=== PATIENT | male | born 1985 | race Caucasian/White ===

== ENCOUNTER 2017-02-05 22:02 | Emergency (ER) | payer OTHER ==
[~2017-02-05] VITALS: Ht 175.3 cm; Wt 80.0 kg
[2017-02-05 22:14] VITALS: BP 102/69
[2017-02-05] MEDS ORDERED: DOXYCYCLINE 100 MG CAPSULE PO ONE (22:30)
[2017-02-05] MEDS ORDERED: IBUPROFEN 800 MG TABLET PO ONE (22:30)
== END 2017-02-05 22:52 | disposition home or self-care (01) ==
LOC: EMS 22:03
DX: L03.116 Cellulitis of left lower limb (principal); F17.210 Nicotine dependence, cigarettes, uncomplicated; Z88.0 Allergy status to penicillin
CPT/HCPCS: 99283

== ENCOUNTER 2017-07-18 03:42 | Inpatient (IN) | payer OTHER ==
[~2017-07-18] VITALS: Ht 172.7 cm; Wt 58.8 kg
[2017-07-18] MEDS ORDERED: KETOROLAC TROMETHAMINE 60 MG/2 ML VIAL IM ONE (06:30)
[2017-07-18] MEDS ORDERED: SODIUM CHLORIDE 0.9% 1,000 ML IV ONE ×3 (06:45→15:15)
[2017-07-18 07:04] LABS: ANION GAP 9 mmol/L (8-16); CALCIUM, TOTAL 8.5 mg/dL (8.8-10.5); CARBON DIOXIDE 24 mmol/L (22-29); CHLORIDE 101 mmol/L (98-107); CREATININE 2.31 mg/dL (0.60-1.30); GLOMERULAR FILTR. RATE CALC 33 mL/min (>60); GLUCOSE,RANDOM 110 mg/dL (70-110); POTASSIUM 3.7 mmol/L (3.5-5.1); SODIUM SERUM 134 mmol/L (136-145); UREA NITROGEN, BLOOD 42 mg/dL (7-18)
[2017-07-18 07:08] LABS: BASOPHILS % (AUTO) 0.5 % (0.0-2.0); EOSINOPHILS % (AUTO) 0.7 % (1.0-6.0); HEMATOCRIT 38.3 % (41-53); HEMOGLOBIN 13.4 g/dL (13.5-17.5); INR 1.1 (0.9-1.1); LYMPHOCYTES # (AUTO) 4.6 K/uL (1.0-4.8); LYMPHOCYTES % (AUTO) 31.5 % (22.0-44.0); MEAN CORPUSCULAR VOLUME 86 fL (80-100); MONOCYTES % (AUTO) 13.7 % (2.0-9.0); NEUTROPHILS # (AUTO) 7.7 K/uL (1.8-7.7); NEUTROPHILS % (AUTO) 53.6 % (40.0-70.0); PROTHROMBIN TIME 11.5 SEC (9.4-11.6); RED BLOOD CELL COUNT(AUTO) 4.47 MIL/uL (4.50-5.90); RED CELL DISTRIBUTION WIDTH 17.5 % (11.5-14.5)
[2017-07-18] MEDS ORDERED: MORPHINE SULFATE 4 MG/ML SYRINGE IVP ONE (07:15)
[2017-07-18] MEDS ORDERED: ONDANSETRON HCL 4 MG/2 ML VIAL IVP ONE (07:15)
[2017-07-18 07:24] LABS: PH,URINE 6.5 (5.0-8.0); PROTEIN,URINE SEE CONFIRM (NEGATIVE)
[2017-07-18 07:25] LABS: BILIRUBIN,URINE PRELIM. POSITIVE (NEGATIVE); GLUCOSE, URINE (UA) 100 mg/dL (NEGATIVE); KETONES,URINE 15 mg/dL (NEGATIVE); LEUKOCYTE ESTERASE ,URINE LARGE (NEGATIVE); NITRATE,URINE NEGATIVE (NEGATIVE); OCCULT BLOOD,URINE LARGE (NEGATIVE)
[2017-07-18 07:27] LABS: APPEARANCE,URINE TURBID (CLEAR)
[2017-07-18 07:28] LABS: PLATELET COUNT (AUTO) 15 K/uL (150-450)
[2017-07-18 07:29] LABS: SULFOSALICYLIC ACID,URINE 4+ (Negative)
[2017-07-18 07:29] LABS: ALANINE AMINOTRANSFERASE 677 U/L (12-78); ALBUMIN 2.6 g/dL (3.4-5.0); ALKALINE PHOSPHATASE 186 U/L (46-116); ASPARTATE AMINOTRANSFERASE 649 U/L (15-37); BILIRUBIN,TOTAL 13.8 mg/dL (0.1-1.0); CREATINE KINASE MB 3.3 ng/mL (0-5); CREATINE KINASE, TOTAL 366 U/L (39-308); TOTAL PROTEIN, SERUM 6.1 g/dL (6.4-8.2)
[2017-07-18 07:30] LABS: BACTERIA,URINE Few /HPF (None Seen); RBC,URINE Full Field /HPF (0-2); SQUAMOUS EPITHELIAL CELL,UR Few /LPF (None Seen)
[2017-07-18 07:31] LABS: AMPHET/METH SCREEN,URINE POSITIVE (NEGATIVE); BARBITURATE SCREEN, URINE NEGATIVE (NEGATIVE); BENZODIAZEPINES SCREEN,URINE NEGATIVE (NEGATIVE); CANNABINOID SCREEN,URINE POSITIVE (NEGATIVE); COCAINE SCREEN,URINE NEGATIVE (NEGATIVE); METHADONE SCREEN, URINE NEGATIVE (NEGATIVE); OPIATE SCREEN,URINE NEGATIVE (NEGATIVE)
[2017-07-18 07:32] LABS: PHENCYCLIDINE SCREEN,URINE NEGATIVE (NEGATIVE)
[2017-07-18] MEDS ORDERED: CIPROFLOXACIN 400 MG/D5% WATER 200 ML IV ONE (10:15)
[2017-07-18] MEDS ORDERED: ACETAMINOPHEN 325 MG TABLET PO PRN ×2 (10:30→15:15)
[2017-07-18] MEDS ORDERED: 0.9% SODIUM CHLORIDE 10 ML SYRINGE IVP PRN (10:30)
[2017-07-18] MEDS ORDERED: ONDANSETRON HCL 4 MG/2 ML VIAL IVP PRN (10:30)
[2017-07-18 13:35] VITALS: BP 131/85
[2017-07-18] MEDS ORDERED: MAGNESIUM HYDROXIDE SUSPENSION 30 ML UDCUP PO PRN (15:15)
[2017-07-18] MEDS ORDERED: BISACODYL 10 MG RECTAL RECTAL SUPPOSITORY PR PRN (15:15)
[2017-07-18] MEDS ORDERED: HYDROCODONE/ACETAMINOPHEN 5-325 MG TABLET PO PRN (15:15)
[2017-07-18] MEDS ORDERED: CIPROFLOXACIN 200 MG/D5% WATER 100 ML IV SCH (15:30)
[2017-07-18 17:05] VITALS: BP 137/78
[2017-07-18 19:31] VITALS: BP 130/70
[2017-07-18] MEDS: DOCUSATE SODIUM 100 MG CAPSULE PO SCH (21:10)
[2017-07-18] MEDS: MORPHINE SULFATE 4 MG/ML SYRINGE IVP PRN (21:10)
[2017-07-18] MEDS: CIPROFLOXACIN 200 MG/D5% WATER 100 ML IV SCH (21:10)
[2017-07-18 23:48] VITALS: BP 133/85
[2017-07-19 04:08] VITALS: BP 147/72
[2017-07-19] MEDS: MORPHINE SULFATE 4 MG/ML SYRINGE IVP PRN ×2 (04:13→16:27)
[2017-07-19 05:57] LABS: INR 1.1 (0.9-1.1); PROTHROMBIN TIME 11.2 SEC (9.4-11.6)
[2017-07-19 06:06] LABS: BASOPHILS % (AUTO) 0.7 % (0.0-2.0); EOSINOPHILS % (AUTO) 0.9 % (1.0-6.0); HEMATOCRIT 32.6 % (41-53); HEMOGLOBIN 11.6 g/dL (13.5-17.5); LYMPHOCYTES % (AUTO) 38.8 % (22.0-44.0); MEAN CORPUSCULAR HEMOGLOBIN 29.7 pg (26.0-34.0); MEAN CORPUSCULAR HGB CONC 35.5 G/dL (31.0-37.0); MEAN CORPUSCULAR VOLUME 84 fL (80-100); MONOCYTES # (AUTO) 1.8 K/uL (0.1-1.0); MONOCYTES % (AUTO) 13.8 % (2.0-9.0); NEUTROPHILS # (AUTO) 5.9 K/uL (1.8-7.7); NEUTROPHILS % (AUTO) 45.8 % (40.0-70.0); RED BLOOD CELL COUNT(AUTO) 3.89 MIL/uL (4.50-5.90); RED CELL DISTRIBUTION WIDTH 18.8 % (11.5-14.5)
[2017-07-19 06:15] LABS: ALBUMIN 2.1 g/dL (3.4-5.0); BILIRUBIN,TOTAL 16.9 mg/dL (0.1-1.0); CREATININE 4.55 mg/dL (0.60-1.30); POTASSIUM 3.9 mmol/L (3.5-5.1); TOTAL PROTEIN, SERUM 5.3 g/dL (6.4-8.2)
[2017-07-19 06:17] LABS: BILIRUBIN,DIRECT 13.2 mg/dL (0.00-0.20); PLATELET COUNT (AUTO) 16 K/uL (150-450)
[2017-07-19 07:03] VITALS: BP 136/93
[2017-07-19] MEDS: CIPROFLOXACIN 200 MG/D5% WATER 100 ML IV SCH ×2 (07:55→20:33)
[2017-07-19] MEDS: PANTOPRAZOLE SODIUM 40 MG DR TABLET PO SCH (08:03)
[2017-07-19] MEDS: DOCUSATE SODIUM 100 MG CAPSULE PO SCH ×2 (08:03→20:32)
[2017-07-19 11:37] VITALS: BP 118/82
[2017-07-19] MEDS: SODIUM BICARBONATE 650 MG TABLET PO SCH ×2 (12:31→20:32)
[2017-07-19 15:34] VITALS: BP 124/78
[2017-07-19 20:02] VITALS: BP 131/84
[2017-07-19] MEDS ORDERED: SODIUM CHLORIDE 0.9% 250 ML IV ONE (20:36)
[2017-07-19 23:33] VITALS: BP 131/87
[2017-07-20 04:24] VITALS: BP 107/68
[2017-07-20] MEDS: MORPHINE SULFATE 4 MG/ML SYRINGE IVP PRN (05:39)
[2017-07-20 05:44] LABS: BASOPHILS % (AUTO) 0.6 % (0.0-2.0); EOSINOPHILS % (AUTO) 0.6 % (1.0-6.0); HEMATOCRIT 25.9 % (41-53); HEMOGLOBIN 9.5 g/dL (13.5-17.5); LYMPHOCYTES # (AUTO) 4.3 K/uL (1.0-4.8); LYMPHOCYTES % (AUTO) 32.9 % (22.0-44.0); MEAN CORPUSCULAR HEMOGLOBIN 29.9 pg (26.0-34.0); MEAN CORPUSCULAR HGB CONC 36.7 G/dL (31.0-37.0); MEAN CORPUSCULAR VOLUME 82 fL (80-100); MONOCYTES # (AUTO) 1.7 K/uL (0.1-1.0); MONOCYTES % (AUTO) 13.4 % (2.0-9.0); NEUTROPHILS # (AUTO) 6.8 K/uL (1.8-7.7); NEUTROPHILS % (AUTO) 52.5 % (40.0-70.0); RED BLOOD CELL COUNT(AUTO) 3.18 MIL/uL (4.50-5.90); RED CELL DISTRIBUTION WIDTH 21.9 % (11.5-14.5)
[2017-07-20 06:43] LABS: ALANINE AMINOTRANSFERASE 522 U/L (12-78); ALBUMIN 2.1 g/dL (3.4-5.0); ALKALINE PHOSPHATASE 160 U/L (46-116); ANION GAP 15 mmol/L (8-16); ASPARTATE AMINOTRANSFERASE 501 U/L (15-37); BILIRUBIN,TOTAL 15.8 mg/dL (0.1-1.0); CALCIUM, TOTAL 7.9 mg/dL (8.8-10.5); CARBON DIOXIDE 20 mmol/L (22-29); CHLORIDE 97 mmol/L (98-107); CREATINE KINASE MB 2.3 ng/mL (0-5); CREATINE KINASE, TOTAL 247 U/L (39-308); GLOMERULAR FILTR. RATE CALC 11 mL/min (>60); GLUCOSE,RANDOM 94 mg/dL (70-110); SODIUM SERUM 132 mmol/L (136-145); TOTAL PROTEIN, SERUM 5.5 g/dL (6.4-8.2)
[2017-07-20 06:45] LABS: PLATELET COUNT (AUTO) 19 K/uL (150-450); PROTHROMBIN TIME 10.6 SEC (9.4-11.6)
[2017-07-20 07:03] VITALS: BP 123/76
[2017-07-20 07:04] LABS: UREA NITROGEN, BLOOD 111 mg/dL (7-18)
[2017-07-20] MEDS: PANTOPRAZOLE SODIUM 40 MG DR TABLET PO SCH (08:08)
[2017-07-20] MEDS: SODIUM BICARBONATE 650 MG TABLET PO SCH ×2 (08:08→21:00)
[2017-07-20] MEDS: CIPROFLOXACIN 200 MG/D5% WATER 100 ML IV SCH ×2 (08:08→22:08)
[2017-07-20] MEDS: DOCUSATE SODIUM 100 MG CAPSULE PO SCH ×2 (08:09→20:33)
[2017-07-20] MEDS ORDERED: LORazepam 2 MG/ML VIAL ONE (09:32)
[2017-07-20] MEDS ORDERED: LIDOCAINE HCL/PF 1% 30 ML VIAL ONE ×2 (10:09→10:19)
[2017-07-20] MEDS: RIFAXIMIN 550 MG TABLET PO SCH ×2 (10:15→21:00)
[2017-07-20] MEDS ORDERED: LORazepam 2 MG/ML VIAL IM ONE (10:15)
[2017-07-20] MEDS ORDERED: SODIUM BICARBONATE 50 MEQ/50 ML VIAL ONE (10:19)
[2017-07-20 12:06] VITALS: BP 117/75
[2017-07-20] MEDS: LACTULOSE 200 GM/300 ML RECTAL SOLUTION PR SCH ×2 (12:42→21:00)
[2017-07-20 15:52] VITALS: BP 114/78
[2017-07-20 16:05] VITALS: BP 115/82
[2017-07-20] MEDS ORDERED: HEPARIN SODIUM,PORCINE 1,000 UNITS/ML 10 ML VIAL ONE (16:43)
[2017-07-20] MEDS: LORazepam 2 MG/ML VIAL IVP PRN ×2 (18:59→22:01)
[2017-07-20] MEDS ORDERED: SODIUM CITRATE 4% CATH FLUSH 5 ML SYRINGE IVP ONE ×2 (19:45)
[2017-07-20 20:00] VITALS: BP 97/69
[2017-07-20] MEDS ORDERED: SODIUM CHLORIDE 0.9% 250 ML IV ONE (21:35)
[2017-07-20 23:28] LABS: GLUCOMETER DEV NAME(LOC) 5N 2S; GLUCOSE,POINT OF CARE 174 MG/DL (70-110)
[2017-07-21] VITALS (10 sets, daily range): BP systolic 92–134; BP diastolic 60–188
[2017-07-21] MEDS: MORPHINE SULFATE 4 MG/ML SYRINGE IVP PRN (00:01)
[2017-07-21] MEDS: LORazepam 2 MG/ML VIAL IVP PRN (04:40)
[2017-07-21 05:10] LABS: INR 1.1 (0.9-1.1); PROTHROMBIN TIME 11.2 SEC (9.4-11.6)
[2017-07-21 05:59] LABS: ALBUMIN 2.3 g/dL (3.4-5.0); BILIRUBIN,TOTAL 10.1 mg/dL (0.1-1.0); CALCIUM, TOTAL 7.8 mg/dL (8.8-10.5); CREATININE 5.26 mg/dL (0.60-1.30); POTASSIUM 4.6 mmol/L (3.5-5.1); TOTAL PROTEIN, SERUM 5.9 g/dL (6.4-8.2)
[2017-07-21 06:13] LABS: BASOPHILS % (AUTO) 0.5 % (0.0-2.0); EOSINOPHILS % (AUTO) 0.2 % (1.0-6.0); HEMOGLOBIN 7.2 g/dL (13.5-17.5); LYMPHOCYTES # (AUTO) 4.7 K/uL (1.0-4.8); LYMPHOCYTES % (AUTO) 32.8 % (22.0-44.0); MEAN CORPUSCULAR VOLUME 79 fL (80-100); MONOCYTES # (AUTO) 1.6 K/uL (0.1-1.0); NEUTROPHILS % (AUTO) 55.5 % (40.0-70.0); PLATELET COUNT (AUTO) 20 K/uL (150-450); RED CELL DISTRIBUTION WIDTH 30.2 % (11.5-14.5)
[2017-07-21 07:00] LABS: MEAN CORPUSCULAR HGB CONC 36.9 G/dL (31.0-37.0)
[2017-07-21] MEDS ORDERED: SODIUM CHLORIDE 0.9% 250 ML IV ONE ×2 (07:49→14:40)
[2017-07-21] MEDS ORDERED: SODIUM CHLORIDE 0.9% 2,000 ML IV ONE (07:49)
[2017-07-21] MEDS: PANTOPRAZOLE SODIUM 40 MG DR TABLET PO SCH (09:00)
[2017-07-21] MEDS: SODIUM BICARBONATE 650 MG TABLET PO SCH ×2 (09:00→21:40)
[2017-07-21] MEDS: RIFAXIMIN 550 MG TABLET PO SCH ×2 (09:00→21:40)
[2017-07-21] MEDS: DOCUSATE SODIUM 100 MG CAPSULE PO SCH ×2 (09:00→21:00)
[2017-07-21] MEDS ORDERED: SODIUM CITRATE 4% CATH FLUSH 5 ML SYRINGE IVP ONE ×2 (11:30)
[2017-07-21] MEDS ORDERED: DiphenhydrAMINE HCL 50 MG/ML VIAL IVP ONE (15:30)
[2017-07-21 15:45] LABS: ABG A-A DIFF O2 57.8 mmHg (10-20.0); ABG BASE EXCESS 0.3 mmol/L (-2.0-3.0); ABG CARBOXYHEMOGLOBIN 3.7 % (0.0-1.5); ABG HCO3 25.3 mmol/L (22.0-26.0); ABG METHEMOGLOBIN 0.8 % (0.0-1.5); ABG OXYGEN CONTENT 11.5 mL/dL (15.0-23.0); ABG OXYHEMOGLOBIN 94.5 % (94.0-100.0); ABG PH 7.596 (7.350-7.450); ABG TOTAL HEMOGLOBIN 8.5 G/dL (12.0-18.0); PO2, ARTERIAL BG 114.6 mmHg (92.0-100.0); SOURCE, BLOOD GAS ARTERIAL; TEMPERATURE, FAHRENHEIT, BG 98.6 FAHREN (96.0-98.6)
[2017-07-21 15:46] LABS: ABG PCO2 23 mmHg (35-45); SITE, BLOOD GAS RT RADIAL
[2017-07-21 15:47] LABS: O2 DEVICE,BLOOD GAS CANNULA (ROOM AIR)
[2017-07-21] MEDS: ACETAMINOPHEN 650 MG RECTAL SUPPOSITORY PR PRN (16:23)
[2017-07-21] MEDS: LACTULOSE 200 GM/300 ML RECTAL SOLUTION PR SCH (21:00)
[2017-07-22] VITALS: BP 117/72
[2017-07-22] MEDS: ACETAMINOPHEN 650 MG RECTAL SUPPOSITORY PR PRN (00:35)
[2017-07-22] MEDS ORDERED: SODIUM CHLORIDE 0.9% 500 ML IV ONE (01:10)
[2017-07-22 04:00] VITALS: BP 118/73
[2017-07-22] MEDS: LORazepam 2 MG/ML VIAL IVP PRN ×2 (04:44→19:40)
[2017-07-22 06:19] LABS: HEMOGLOBIN 7.3 g/dL (13.5-17.5); MEAN CORPUSCULAR HEMOGLOBIN 29.9 pg (26.0-34.0); MEAN CORPUSCULAR HGB CONC 35.9 G/dL (31.0-37.0); MEAN CORPUSCULAR VOLUME 83 fL (80-100); RED BLOOD CELL COUNT(AUTO) 2.44 MIL/uL (4.50-5.90); RED CELL DISTRIBUTION WIDTH 24.2 % (11.5-14.5)
[2017-07-22 06:23] LABS: HEMATOCRIT 20.3 % (41-53)
[2017-07-22 06:24] LABS: PLATELET COUNT (AUTO) 15 K/uL (150-450)
[2017-07-22] MEDS ORDERED: VANCOMYCIN HCL 1.5 GM in DEXTROSE 5%-WATER 250 ML IV ONE (07:00)
[2017-07-22] MEDS ORDERED: VANCOMYCIN HCL 1 GM/D5% WATER 200 ML IV PRN (07:00)
[2017-07-22 08:00] VITALS: BP 111/65
[2017-07-22] MEDS ORDERED: *CLINICAL-LEVOFLOXACIN IVPB DOSING CLINICAL ONE (08:30)
[2017-07-22 08:48] LABS: CREATININE,URINE RANDOM 114.9 mg/dL (30.0-125.0)
[2017-07-22] MEDS ORDERED: LEVOFLOXACIN 750 MG/D5% WATER 150 ML IV ONE (09:00)
[2017-07-22] MEDS: DOCUSATE SODIUM 100 MG CAPSULE PO SCH ×2 (09:00→21:00)
[2017-07-22 09:08] LABS: CALCIUM, TOTAL 7.9 mg/dL (8.8-10.5); CREATININE 5.55 mg/dL (0.60-1.30); POTASSIUM 5.9 mmol/L (3.5-5.1)
[2017-07-22 09:14] LABS: ALBUMIN 2.7 g/dL (3.4-5.0); BILIRUBIN,TOTAL 9.1 mg/dL (0.1-1.0); TOTAL PROTEIN, SERUM 6.6 g/dL (6.4-8.2)
[2017-07-22] MEDS ORDERED: SODIUM POLYSTYRENE SULFONATE 15 GM/60 ML SUSPENSION BOTTLE NG ONE (09:15)
[2017-07-22] MEDS: RIFAXIMIN 550 MG TABLET PO SCH ×2 (09:25→21:55)
[2017-07-22] MEDS: LevETIRAcetam 500 MG in DEXTROSE 5%-WATER 100 ML IV SCH ×2 (09:25→21:56)
[2017-07-22] MEDS: PANTOPRAZOLE SODIUM 40 MG DR TABLET PO SCH (09:25)
[2017-07-22] MEDS: SODIUM BICARBONATE 650 MG TABLET PO SCH ×2 (09:25→21:55)
[2017-07-22] MEDS: LACTULOSE 200 GM/300 ML RECTAL SOLUTION PR SCH ×2 (09:26→21:55)
[2017-07-22] MEDS ORDERED: SODIUM CHLORIDE 0.9% 250 ML IV ONE (09:30)
[2017-07-22 09:45] LABS: BAND NEUTROPHILS % (MANUAL) 6 % (0-5); LYMPHOCYTES % (MANUAL) 34 % (22-44); METAMYELOCYTES % 2 % (0-0); MONOCYTES % (MANUAL) 10 % (2-9); MYELOCYTES % 4 % (0-0); SEGMENTED NEUTROPHILS % 44 % (40-70)
[2017-07-22] MEDS ORDERED: VANCOMYCIN HCL 500 MG in DEXTROSE 5%-WATER 100 ML IV ONE (11:15)
[2017-07-22] MEDS: ALBUMIN HUMAN 25%-25GM/100ML 100 ML IV SCH ×2 (11:35→22:55)
[2017-07-22] MEDS: VITAMIN B COMP/VIT C/FOLIC ACID CAPSULE PO SCH (11:35)
[2017-07-22 12:00] VITALS: BP 107/64
[2017-07-22 12:27] LABS: APPEARANCE,URINE CLOUDY (CLEAR); GLUCOSE, URINE (UA) NEGATIVE (NEGATIVE); KETONES,URINE NEGATIVE (NEGATIVE); LEUKOCYTE ESTERASE ,URINE NEGATIVE (NEGATIVE); NITRATE,URINE NEGATIVE (NEGATIVE); OCCULT BLOOD,URINE LARGE (NEGATIVE); PROTEIN,URINE SEE CONFIRM (NEGATIVE)
[2017-07-22 12:46] LABS: BILIRUBIN,URINE PRELIM. POSITIVE (NEGATIVE)
[2017-07-22 12:51] LABS: SULFOSALICYLIC ACID,URINE 3+ (Negative)
[2017-07-22 12:53] LABS: BACTERIA,URINE Few /HPF (None Seen); WBC,URINE 0-2 /HPF (0-5)
[2017-07-22 12:57] LABS: SQUAMOUS EPITHELIAL CELL,UR Rare /LPF (None Seen)
[2017-07-22 16:00] VITALS: BP 131/73
[2017-07-22] MEDS ORDERED: SODIUM CHLORIDE 0.9% 1,000 ML IV ONE (16:03)
[2017-07-22] MEDS ORDERED: SODIUM CITRATE 4% CATH FLUSH 5 ML SYRINGE IVP ONE (17:30)
[2017-07-22 20:00] VITALS: BP 111/62
[2017-07-22 20:04] LABS: C.DIFF GDH ANTIGEN, Stool Negative (Negative); C.DIFF TOXINS A&B, Stool Negative (Negative)
[2017-07-23] VITALS (17 sets, daily range): BP systolic 102–137; BP diastolic 58–78
[2017-07-23 05:27] LABS: BASOPHILS % (AUTO) 0.1 % (0.0-2.0); EOSINOPHILS % (AUTO) 0.2 % (1.0-6.0); LYMPHOCYTES # (AUTO) 5.8 K/uL (1.0-4.8); LYMPHOCYTES % (AUTO) 18.6 % (22.0-44.0); MEAN CORPUSCULAR HGB CONC 36.1 G/dL (31.0-37.0); MEAN CORPUSCULAR VOLUME 86 fL (80-100); MONOCYTES # (AUTO) 4.6 K/uL (0.1-1.0); MONOCYTES % (AUTO) 14.9 % (2.0-9.0); NEUTROPHILS # (AUTO) 20.4 K/uL (1.8-7.7); NEUTROPHILS % (AUTO) 66.2 % (40.0-70.0); RED CELL DISTRIBUTION WIDTH 25.5 % (11.5-14.5)
[2017-07-23 05:37] LABS: ALBUMIN 2.9 g/dL (3.4-5.0); BILIRUBIN,TOTAL 6.5 mg/dL (0.1-1.0); CREATININE 3.61 mg/dL (0.60-1.30); MAGNESIUM 2.2 mg/dL (1.80-2.40); PHOSPHORUS 8.7 mg/dL (2.5-4.9); POTASSIUM 4.1 mmol/L (3.5-5.1); TOTAL PROTEIN, SERUM 6.3 g/dL (6.4-8.2); VANCOMYCIN,RANDOM 20.6 mcg/mL (25.0-50.0)
[2017-07-23 06:38] LABS: HEMATOCRIT 15.5 % (41-53); HEMOGLOBIN 5.6 g/dL (13.5-17.5)
[2017-07-23 06:39] LABS: PLATELET COUNT (AUTO) 14 K/uL (150-450)
[2017-07-23] MEDS ORDERED: DiphenhydrAMINE HCL 50 MG/ML VIAL IVP ONE (08:15)
[2017-07-23] MEDS ORDERED: ACETAMINOPHEN 325 MG TABLET PO ONE (08:15)
[2017-07-23] MEDS ORDERED: SODIUM CHLORIDE 0.9% 250 ML IV ONE ×2 (08:16→15:43)
[2017-07-23] MEDS: LevETIRAcetam 500 MG in DEXTROSE 5%-WATER 100 ML IV SCH ×2 (08:18→20:48)
[2017-07-23] MEDS: DOCUSATE SODIUM 100 MG CAPSULE PO SCH ×2 (09:32→21:00)
[2017-07-23] MEDS: PANTOPRAZOLE SODIUM 40 MG/VIAL IVP SCH ×2 (09:32→20:51)
[2017-07-23] MEDS: VITAMIN B COMP/VIT C/FOLIC ACID CAPSULE PO SCH (09:32)
[2017-07-23] MEDS: SODIUM BICARBONATE 650 MG TABLET PO SCH ×2 (09:33→20:48)
[2017-07-23] MEDS: RIFAXIMIN 550 MG TABLET PO SCH ×2 (09:33→20:48)
[2017-07-23] MEDS: LACTULOSE 20 GM/30 ML SOLUTION UDCUP PO SCH ×2 (12:41→20:48)
[2017-07-23] MEDS: ALBUMIN HUMAN 25%-25GM/100ML 100 ML IV SCH ×2 (12:44→22:59)
[2017-07-23] MEDS: LORazepam 2 MG/ML VIAL IVP PRN (14:08)
[2017-07-24] VITALS (13 sets, daily range): BP systolic 108–139; BP diastolic 64–82
[2017-07-24] MEDS ORDERED: MetroNIDAZOLE 500 MG/NACL 100 ML IV SCH
[2017-07-24] MEDS: MetroNIDAZOLE 500 MG TABLET NG SCH ×3 (01:26→16:17)
[2017-07-24] MEDS: DOXYCYCLINE 100 MG CAPSULE NG SCH ×3 (02:02→20:40)
[2017-07-24] MEDS: LORazepam 2 MG/ML VIAL IVP PRN ×2 (02:16→13:51)
[2017-07-24 05:35] LABS: MEAN CORPUSCULAR HEMOGLOBIN 31.2 pg (26.0-34.0); MEAN CORPUSCULAR HGB CONC 35.7 G/dL (31.0-37.0); MEAN CORPUSCULAR VOLUME 87 fL (80-100); RED BLOOD CELL COUNT(AUTO) 2.04 MIL/uL (4.50-5.90); RED CELL DISTRIBUTION WIDTH 19.2 % (11.5-14.5)
[2017-07-24 06:55] LABS: HEMATOCRIT 17.8 % (41-53); HEMOGLOBIN 6.4 g/dL (13.5-17.5); PLATELET COUNT (AUTO) 7 K/uL (150-450)
[2017-07-24] MEDS: VITAMIN B COMP/VIT C/FOLIC ACID CAPSULE PO SCH (08:51)
[2017-07-24] MEDS: RIFAXIMIN 550 MG TABLET PO SCH ×2 (08:51→20:40)
[2017-07-24] MEDS: SODIUM BICARBONATE 650 MG TABLET PO SCH ×2 (08:51→20:41)
[2017-07-24] MEDS: LACTULOSE 20 GM/30 ML SOLUTION UDCUP PO SCH ×2 (08:52→20:40)
[2017-07-24] MEDS: PANTOPRAZOLE SODIUM 40 MG/VIAL IVP SCH ×2 (08:52→20:42)
[2017-07-24] MEDS: LEVOFLOXACIN 500 MG/D5% WATER 100 ML IV SCH (08:53)
[2017-07-24] MEDS: LevETIRAcetam 500 MG in DEXTROSE 5%-WATER 100 ML IV SCH ×2 (08:53→20:29)
[2017-07-24] MEDS: DOCUSATE SODIUM 100 MG CAPSULE PO SCH ×2 (08:54→20:41)
[2017-07-24 09:33] LABS: ALBUMIN 3.4 g/dL (3.4-5.0); BILIRUBIN,TOTAL 5.7 mg/dL (0.1-1.0); CALCIUM, TOTAL 7.9 mg/dL (8.8-10.5); CREATININE 4.55 mg/dL (0.60-1.30); POTASSIUM 3.9 mmol/L (3.5-5.1); TOTAL PROTEIN, SERUM 6.8 g/dL (6.4-8.2)
[2017-07-24 10:17] LABS: BAND NEUTROPHILS % (MANUAL) 8 % (0-5); CORRECTED WHITE BLOOD COUNT 23.3 K/uL (4.5-11.0); EOSINOPHILS % (MANUAL) 2 % (1-6); LYMPHOCYTES % (MANUAL) 13 % (22-44); METAMYELOCYTES % 2 % (0-0); MONOCYTES % (MANUAL) 15 % (2-9); MYELOCYTES % 2 % (0-0); SEGMENTED NEUTROPHILS % 58 % (40-70)
[2017-07-24] MEDS: ALBUMIN HUMAN 25%-25GM/100ML 100 ML IV SCH ×2 (11:55→23:15)
[2017-07-24] MEDS ORDERED: SODIUM CHLORIDE 0.9% 500 ML IV ONE (14:26)
[2017-07-24] MEDS: ACETAMINOPHEN 650 MG/20.3 ML SOLUTION UDCUP NG PRN (16:17)
[2017-07-24 20:10] LABS: OCCULT BLOOD STOOL SINGLE ONLY POSITIVE (NEGATIVE)
[2017-07-24 20:37] LABS: C.DIFF GDH ANTIGEN, Stool Negative (Negative); C.DIFF TOXINS A&B, Stool Negative (Negative)
[2017-07-25] VITALS (20 sets, daily range): BP systolic 118–141; BP diastolic 60–83
[2017-07-25] MEDS: LORazepam 2 MG/ML VIAL IVP PRN ×2 (00:10→21:53)
[2017-07-25] MEDS: MetroNIDAZOLE 500 MG TABLET NG SCH ×4 (00:45→23:35)
[2017-07-25 06:22] LABS: VANCOMYCIN,RANDOM 5.6 mcg/mL (25.0-50.0)
[2017-07-25 06:25] LABS: CALCIUM, TOTAL 8.7 mg/dL (8.8-10.5); CREATININE 4.35 mg/dL (0.60-1.30); MAGNESIUM 2.7 mg/dL (1.80-2.40); PHOSPHORUS 6.4 mg/dL (2.5-4.9); POTASSIUM 3.5 mmol/L (3.5-5.1)
[2017-07-25] MEDS: LevETIRAcetam 500 MG in DEXTROSE 5%-WATER 100 ML IV SCH ×2 (08:55→21:51)
[2017-07-25] MEDS: PANTOPRAZOLE SODIUM 40 MG/VIAL IVP SCH ×2 (08:55→21:51)
[2017-07-25] MEDS: DEXTROSE 5%-0.45% SODIUM CHL 1,000 ML IV SCH (08:55)
[2017-07-25] MEDS: VITAMIN B COMP/VIT C/FOLIC ACID CAPSULE PO SCH (08:56)
[2017-07-25] MEDS: SODIUM BICARBONATE 650 MG TABLET PO SCH ×2 (08:56→21:50)
[2017-07-25] MEDS: LACTULOSE 20 GM/30 ML SOLUTION UDCUP PO SCH (08:56)
[2017-07-25] MEDS: DOCUSATE SODIUM 100 MG CAPSULE PO SCH ×2 (08:56→21:00)
[2017-07-25] MEDS: RIFAXIMIN 550 MG TABLET PO SCH ×2 (08:56→21:50)
[2017-07-25] MEDS: DOXYCYCLINE 100 MG CAPSULE NG SCH ×2 (08:57→21:50)
[2017-07-25] MEDS ORDERED: VANCOMYCIN HCL 1.5 GM in DEXTROSE 5%-WATER 250 ML IV ONE (09:00)
[2017-07-25 09:44] LABS: MEAN CORPUSCULAR HEMOGLOBIN 31.3 pg (26.0-34.0); MEAN CORPUSCULAR HGB CONC 34.7 G/dL (31.0-37.0); MEAN CORPUSCULAR VOLUME 90 fL (80-100); RED BLOOD CELL COUNT(AUTO) 2.05 MIL/uL (4.50-5.90); RED CELL DISTRIBUTION WIDTH 18.4 % (11.5-14.5)
[2017-07-25 09:50] LABS: HEMOGLOBIN 6.4 g/dL (13.5-17.5)
[2017-07-25 09:51] LABS: HEMATOCRIT 18.5 % (41-53)
[2017-07-25 09:52] LABS: PLATELET COUNT (AUTO) 12 K/uL (150-450)
[2017-07-25 11:06] LABS: BAND NEUTROPHILS % (MANUAL) 9 % (0-5); CORRECTED WHITE BLOOD COUNT 13.7 K/uL (4.5-11.0); EOSINOPHILS % (MANUAL) 1 % (1-6); LYMPHOCYTES % (MANUAL) 15 % (22-44); METAMYELOCYTES % 1 % (0-0); MONOCYTES % (MANUAL) 8 % (2-9); MYELOCYTES % 3 % (0-0); SEGMENTED NEUTROPHILS % 63 % (40-70)
[2017-07-25] MEDS: ALBUMIN HUMAN 25%-25GM/100ML 100 ML IV SCH ×2 (11:47→23:35)
[2017-07-25] MEDS ORDERED: SODIUM CHLORIDE 0.9% 250 ML IV ONE (13:25)
[2017-07-26] VITALS (8 sets, daily range): BP systolic 119–146; BP diastolic 61–87
[2017-07-26] MEDS: MORPHINE SULFATE 4 MG/ML SYRINGE IVP PRN (00:03)
[2017-07-26] MEDS: DEXTROSE 5%-0.45% SODIUM CHL 1,000 ML IV SCH (02:27)
[2017-07-26 05:33] LABS: ALBUMIN 3.8 g/dL (3.4-5.0); BILIRUBIN,TOTAL 4.6 mg/dL (0.1-1.0); CALCIUM, TOTAL 8.9 mg/dL (8.8-10.5); CREATININE 4.06 mg/dL (0.60-1.30); MAGNESIUM 2.5 mg/dL (1.80-2.40); PHOSPHORUS 5.4 mg/dL (2.5-4.9); POTASSIUM 3.3 mmol/L (3.5-5.1); TOTAL PROTEIN, SERUM 6.7 g/dL (6.4-8.2)
[2017-07-26] MEDS ORDERED: POTASSIUM CHLORIDE 10% 40 MEQ/30 ML LIQUID UDCUP NG ONE (07:00)
[2017-07-26 07:52] LABS: BASOPHILS % (AUTO) 0.5 % (0.0-2.0); EOSINOPHILS % (AUTO) 2.9 % (1.0-6.0); HEMATOCRIT 21.5 % (41-53); HEMOGLOBIN 7.5 g/dL (13.5-17.5); LYMPHOCYTES # (AUTO) 2.6 K/uL (1.0-4.8); MEAN CORPUSCULAR VOLUME 89 fL (80-100); MONOCYTES # (AUTO) 1.8 K/uL (0.1-1.0); MONOCYTES % (AUTO) 12.5 % (2.0-9.0); NEUTROPHILS # (AUTO) 9.5 K/uL (1.8-7.7); NEUTROPHILS % (AUTO) 66.1 % (40.0-70.0); RED BLOOD CELL COUNT(AUTO) 2.43 MIL/uL (4.50-5.90); RED CELL DISTRIBUTION WIDTH 20.8 % (11.5-14.5)
[2017-07-26 08:03] LABS: PLATELET COUNT (AUTO) 11 K/uL (150-450)
[2017-07-26] MEDS: LEVOFLOXACIN 500 MG/D5% WATER 100 ML IV SCH (10:07)
[2017-07-26] MEDS: LevETIRAcetam 500 MG in DEXTROSE 5%-WATER 100 ML IV SCH ×2 (10:07→21:03)
[2017-07-26] MEDS: MetroNIDAZOLE 500 MG TABLET NG SCH ×2 (10:16→17:39)
[2017-07-26] MEDS: PANTOPRAZOLE SODIUM 40 MG/VIAL IVP SCH ×2 (10:16→21:05)
[2017-07-26] MEDS: DOXYCYCLINE 100 MG CAPSULE NG SCH ×2 (10:17→21:09)
[2017-07-26] MEDS: LACTULOSE 20 GM/30 ML SOLUTION UDCUP PO SCH (10:17)
[2017-07-26] MEDS: RIFAXIMIN 550 MG TABLET PO SCH ×2 (10:19→21:06)
[2017-07-26] MEDS: VITAMIN B COMP/VIT C/FOLIC ACID CAPSULE PO SCH (10:19)
[2017-07-26] MEDS: DOCUSATE SODIUM 100 MG CAPSULE PO SCH ×2 (10:21→21:06)
[2017-07-26] MEDS: POTASSIUM CHLORIDE 20 MEQ in DEXTROSE 5%-WATER 1,000 ML IV SCH (11:32)
[2017-07-26] MEDS: ALBUMIN HUMAN 25%-25GM/100ML 100 ML IV SCH ×2 (11:34→23:50)
[2017-07-27] VITALS (12 sets, daily range): BP systolic 123–137; BP diastolic 59–83
[2017-07-27] MEDS: MetroNIDAZOLE 500 MG TABLET NG SCH ×3 (00:52→16:36)
[2017-07-27] MEDS: POTASSIUM CHLORIDE 20 MEQ in DEXTROSE 5%-WATER 1,000 ML IV SCH ×2 (06:19→21:24)
[2017-07-27 07:52] LABS: ALBUMIN 3.8 g/dL (3.4-5.0); BILIRUBIN,TOTAL 4.2 mg/dL (0.1-1.0); CALCIUM, TOTAL 8.8 mg/dL (8.8-10.5); CREATININE 3.58 mg/dL (0.60-1.30); POTASSIUM 3.6 mmol/L (3.5-5.1); TOTAL PROTEIN, SERUM 6.6 g/dL (6.4-8.2)
[2017-07-27 08:08] LABS: FIBRIN SPLIT PRODUCTS Greater than 40 mcg/mL (<10); INR 1.2 (0.9-1.1); PROTHROMBIN TIME 12.2 SEC (9.4-11.6)
[2017-07-27] MEDS: PANTOPRAZOLE SODIUM 40 MG/VIAL IVP SCH ×2 (08:18→21:07)
[2017-07-27] MEDS: RIFAXIMIN 550 MG TABLET PO SCH ×2 (08:18→21:06)
[2017-07-27] MEDS: DOXYCYCLINE 100 MG CAPSULE NG SCH ×2 (08:18→21:06)
[2017-07-27] MEDS: LACTULOSE 20 GM/30 ML SOLUTION UDCUP PO SCH (08:18)
[2017-07-27] MEDS: LevETIRAcetam 500 MG in DEXTROSE 5%-WATER 100 ML IV SCH ×2 (08:18→21:24)
[2017-07-27] MEDS: VITAMIN B COMP/VIT C/FOLIC ACID CAPSULE PO SCH (08:19)
[2017-07-27] MEDS: DOCUSATE SODIUM 100 MG CAPSULE PO SCH ×2 (08:19→21:06)
[2017-07-27] MEDS ORDERED: SODIUM CHLORIDE 0.9% 100 ML ONE (08:25)
[2017-07-27 08:31] LABS: FIBRINOGEN 296 mg/dL (200-400)
[2017-07-27] MEDS ORDERED: LORazepam 2 MG/ML VIAL IVP ONE (10:45)
[2017-07-27 11:39] LABS: MEAN CORPUSCULAR HEMOGLOBIN 31.1 pg (26.0-34.0); MEAN CORPUSCULAR HGB CONC 34.7 G/dL (31.0-37.0); MEAN CORPUSCULAR VOLUME 90 fL (80-100); RED BLOOD CELL COUNT(AUTO) 2.25 MIL/uL (4.50-5.90); RED CELL DISTRIBUTION WIDTH 31.2 % (11.5-14.5)
[2017-07-27 11:53] LABS: HEMATOCRIT 20.2 % (41-53)
[2017-07-27 11:54] LABS: PLATELET COUNT (AUTO) 14 K/uL (150-450)
[2017-07-27] MEDS: ALBUMIN HUMAN 25%-25GM/100ML 100 ML IV SCH ×2 (12:01→23:45)
[2017-07-27 12:32] LABS: BAND NEUTROPHILS % (MANUAL) 21 % (0-5); EOSINOPHILS % (MANUAL) 4 % (1-6); LYMPHOCYTES % (MANUAL) 20 % (22-44); MONOCYTES % (MANUAL) 4 % (2-9); SEGMENTED NEUTROPHILS % 51 % (40-70)
[2017-07-27] MEDS ORDERED: SODIUM CHLORIDE 0.9% 250 ML IV ONE (18:30)
[2017-07-28] VITALS (9 sets, daily range): BP systolic 124–134; BP diastolic 59–78
[2017-07-28] MEDS: MetroNIDAZOLE 500 MG TABLET NG SCH ×4 (00:19→23:17)
[2017-07-28] MEDS: POTASSIUM CHLORIDE 20 MEQ in DEXTROSE 5%-WATER 1,000 ML IV SCH (03:59)
[2017-07-28 07:03] LABS: BASOPHILS % (AUTO) 0.3 % (0.0-2.0); EOSINOPHILS % (AUTO) 4.5 % (1.0-6.0); HEMOGLOBIN 7.3 g/dL (13.5-17.5); LYMPHOCYTES # (AUTO) 1.9 K/uL (1.0-4.8); LYMPHOCYTES % (AUTO) 14.3 % (22.0-44.0); MEAN CORPUSCULAR HEMOGLOBIN 31.5 pg (26.0-34.0); MEAN CORPUSCULAR HGB CONC 35.4 G/dL (31.0-37.0); MEAN CORPUSCULAR VOLUME 89 fL (80-100); MONOCYTES # (AUTO) 1.2 K/uL (0.1-1.0); MONOCYTES % (AUTO) 8.7 % (2.0-9.0); NEUTROPHILS # (AUTO) 9.7 K/uL (1.8-7.7); NEUTROPHILS % (AUTO) 72.2 % (40.0-70.0); RED BLOOD CELL COUNT(AUTO) 2.31 MIL/uL (4.50-5.90); RED CELL DISTRIBUTION WIDTH 27.5 % (11.5-14.5)
[2017-07-28 07:11] LABS: BILIRUBIN,TOTAL 3.5 mg/dL (0.1-1.0); CALCIUM, TOTAL 8.9 mg/dL (8.8-10.5); CREATININE 3.29 mg/dL (0.60-1.30); INR 1.2 (0.9-1.1); POTASSIUM 3.7 mmol/L (3.5-5.1); TOTAL PROTEIN, SERUM 6.6 g/dL (6.4-8.2)
[2017-07-28 07:20] LABS: HEMATOCRIT 20.6 % (41-53)
[2017-07-28 07:21] LABS: PLATELET COUNT (AUTO) 13 K/uL (150-450)
[2017-07-28] MEDS: LACTULOSE 20 GM/30 ML SOLUTION UDCUP PO SCH (08:39)
[2017-07-28] MEDS: PANTOPRAZOLE SODIUM 40 MG/VIAL IVP SCH ×2 (08:40→21:12)
[2017-07-28] MEDS: VITAMIN B COMP/VIT C/FOLIC ACID CAPSULE PO SCH (08:40)
[2017-07-28] MEDS: RIFAXIMIN 550 MG TABLET PO SCH ×2 (08:40→21:12)
[2017-07-28] MEDS: DOXYCYCLINE 100 MG CAPSULE NG SCH ×2 (08:40→21:12)
[2017-07-28] MEDS: DOCUSATE SODIUM 100 MG CAPSULE PO SCH ×2 (08:53→21:12)
[2017-07-28] MEDS: LevETIRAcetam 500 MG in DEXTROSE 5%-WATER 100 ML IV SCH ×2 (09:24→21:21)
[2017-07-28] MEDS: ALBUMIN HUMAN 25%-25GM/100ML 100 ML IV SCH ×2 (11:52→23:11)
[2017-07-28] MEDS ORDERED: SODIUM CHLORIDE 0.9% 250 ML IV ONE (21:23)
[2017-07-29 05:25] VITALS: BP 131/73
[2017-07-29 06:31] LABS: INR 1.1 (0.9-1.1); PROTHROMBIN TIME 11.8 SEC (9.4-11.6)
[2017-07-29 06:45] LABS: BASOPHILS % (AUTO) 0.3 % (0.0-2.0); EOSINOPHILS % (AUTO) 2.5 % (1.0-6.0); HEMOGLOBIN 7.1 g/dL (13.5-17.5); LYMPHOCYTES # (AUTO) 2.6 K/uL (1.0-4.8); LYMPHOCYTES % (AUTO) 16.5 % (22.0-44.0); MEAN CORPUSCULAR HEMOGLOBIN 31.7 pg (26.0-34.0); MEAN CORPUSCULAR HGB CONC 34.8 G/dL (31.0-37.0); MEAN CORPUSCULAR VOLUME 91 fL (80-100); MONOCYTES # (AUTO) 1.4 K/uL (0.1-1.0); MONOCYTES % (AUTO) 9.3 % (2.0-9.0); NEUTROPHILS # (AUTO) 11.1 K/uL (1.8-7.7); NEUTROPHILS % (AUTO) 71.4 % (40.0-70.0); RED BLOOD CELL COUNT(AUTO) 2.25 MIL/uL (4.50-5.90)
[2017-07-29 06:50] LABS: CREATININE 3.07 mg/dL (0.60-1.30); POTASSIUM 3.9 mmol/L (3.5-5.1)
[2017-07-29 08:10] LABS: PLATELET COUNT (AUTO) 14 K/uL (150-450)
[2017-07-29] MEDS: PANTOPRAZOLE SODIUM 40 MG/VIAL IVP SCH ×2 (08:38→20:51)
[2017-07-29] MEDS: LACTULOSE 20 GM/30 ML SOLUTION UDCUP PO SCH (08:38)
[2017-07-29] MEDS: VITAMIN B COMP/VIT C/FOLIC ACID CAPSULE PO SCH (08:38)
[2017-07-29] MEDS: RIFAXIMIN 550 MG TABLET PO SCH ×2 (08:38→20:51)
[2017-07-29] MEDS: DOXYCYCLINE 100 MG CAPSULE NG SCH ×2 (08:39→20:51)
[2017-07-29] MEDS: DOCUSATE SODIUM 100 MG CAPSULE PO SCH ×2 (08:41→20:51)
[2017-07-29] MEDS: MetroNIDAZOLE 500 MG TABLET NG SCH ×3 (08:41→23:57)
[2017-07-29] MEDS: LevETIRAcetam 500 MG in DEXTROSE 5%-WATER 100 ML IV SCH ×2 (08:41→20:51)
[2017-07-29 08:47] VITALS: BP 147/71
[2017-07-29 12:09] VITALS: BP 138/70
[2017-07-29] MEDS: ALBUMIN HUMAN 25%-25GM/100ML 100 ML IV SCH ×2 (12:16→22:54)
[2017-07-29] MEDS ORDERED: SODIUM CHLORIDE 0.9% 100 ML ONE (12:52)
[2017-07-29 16:10] VITALS: BP 114/68
[2017-07-29 19:33] VITALS: BP 141/76
[2017-07-29 23:40] VITALS: BP 119/67
[2017-07-30] VITALS (13 sets, daily range): BP systolic 112–140; BP diastolic 67–93
[2017-07-30 04:44] LABS: HIV 1-2 SCREEN 4TH GEN W/RFLX Non Reactive (Non Reactive)
[2017-07-30 06:41] LABS: INR 1.2 (0.9-1.1); PROTHROMBIN TIME 12.1 SEC (9.4-11.6)
[2017-07-30 07:02] LABS: BASOPHILS % (AUTO) 0.6 % (0.0-2.0); EOSINOPHILS % (AUTO) 2.9 % (1.0-6.0); LYMPHOCYTES # (AUTO) 2.4 K/uL (1.0-4.8); LYMPHOCYTES % (AUTO) 14.5 % (22.0-44.0); MEAN CORPUSCULAR HGB CONC 34.8 G/dL (31.0-37.0); MEAN CORPUSCULAR VOLUME 92 fL (80-100); MONOCYTES # (AUTO) 1.6 K/uL (0.1-1.0); MONOCYTES % (AUTO) 9.6 % (2.0-9.0); NEUTROPHILS # (AUTO) 11.7 K/uL (1.8-7.7); NEUTROPHILS % (AUTO) 72.4 % (40.0-70.0); RED BLOOD CELL COUNT(AUTO) 2.06 MIL/uL (4.50-5.90); RED CELL DISTRIBUTION WIDTH 27.8 % (11.5-14.5)
[2017-07-30 07:20] LABS: ALBUMIN 4.8 g/dL (3.4-5.0); BILIRUBIN,TOTAL 3.5 mg/dL (0.1-1.0); CALCIUM, TOTAL 9.6 mg/dL (8.8-10.5); CREATININE 2.75 mg/dL (0.60-1.30); POTASSIUM 4.1 mmol/L (3.5-5.1); TOTAL PROTEIN, SERUM 7.7 g/dL (6.4-8.2)
[2017-07-30 07:36] LABS: HEMOGLOBIN 6.6 g/dL (13.5-17.5)
[2017-07-30 07:37] LABS: HEMATOCRIT 18.9 % (41-53)
[2017-07-30 07:38] LABS: PLATELET COUNT (AUTO) 16 K/uL (150-450)
[2017-07-30] MEDS: MetroNIDAZOLE 500 MG TABLET NG SCH ×2 (09:22→15:03)
[2017-07-30] MEDS: RIFAXIMIN 550 MG TABLET PO SCH (09:22)
[2017-07-30] MEDS: LACTULOSE 20 GM/30 ML SOLUTION UDCUP PO SCH (09:22)
[2017-07-30] MEDS: VITAMIN B COMP/VIT C/FOLIC ACID CAPSULE PO SCH (09:22)
[2017-07-30] MEDS: DOCUSATE SODIUM 100 MG CAPSULE PO SCH ×2 (09:22→21:00)
[2017-07-30] MEDS: PANTOPRAZOLE SODIUM 40 MG/VIAL IVP SCH (09:22)
[2017-07-30] MEDS: DOXYCYCLINE 100 MG CAPSULE NG SCH (09:23)
[2017-07-30] MEDS: LevETIRAcetam 500 MG in DEXTROSE 5%-WATER 100 ML IV SCH (09:24)
[2017-07-30] MEDS ORDERED: SODIUM CHLORIDE 0.9% 100 ML ONE (10:12)
[2017-07-30] MEDS: ALBUMIN HUMAN 25%-25GM/100ML 100 ML IV SCH (10:24)
[2017-07-30] MEDS: MethylPREDNISolone SOD SUCC 125 MG/2 ML VIAL IVP SCH ×2 (15:03→18:52)
[2017-07-30 15:33] LABS: HEMOGLOBIN 7.1 g/dL (13.5-17.5); MEAN CORPUSCULAR HEMOGLOBIN 31.3 pg (26.0-34.0); MEAN CORPUSCULAR HGB CONC 34.6 G/dL (31.0-37.0); MEAN CORPUSCULAR VOLUME 90 fL (80-100); RED BLOOD CELL COUNT(AUTO) 2.27 MIL/uL (4.50-5.90); RED CELL DISTRIBUTION WIDTH 25.2 % (11.5-14.5)
[2017-07-30 15:47] LABS: HEMATOCRIT 20.5 % (41-53); PLATELET COUNT (AUTO) 13 K/uL (150-450)
[2017-07-30 16:18] LABS: BAND NEUTROPHILS % (MANUAL) 5 % (0-5); EOSINOPHILS % (MANUAL) 3 % (1-6); LYMPHOCYTES % (MANUAL) 17 % (22-44); MONOCYTES % (MANUAL) 4 % (2-9); SEGMENTED NEUTROPHILS % 71 % (40-70)
[2017-07-30] MEDS ORDERED: CALCIUM GLUCONATE 3,000 MG in SODIUM CHLORIDE 0.9% 250 ML IV ONE (17:15)
[2017-07-30 17:54] LABS: INR 1.2 (0.9-1.1); PROTHROMBIN TIME 12.3 SEC (9.4-11.6)
[2017-07-30 20:10] LABS: ROCKY MT SPOTTED FEVER IGG Negative (Negative)
[2017-07-30] MEDS: ACETAMINOPHEN 650 MG/20.3 ML SOLUTION UDCUP NG PRN (21:22)
[2017-07-30 21:28] LABS: ROCKY MT SPOTTED FEVER IGM 0.39 index (0.00-0.89)
[2017-07-31] VITALS (15 sets, daily range): BP systolic 112–126; BP diastolic 51–79
[2017-07-31] MEDS ORDERED: CALCIUM GLUCONATE 100 MG/ML 10 ML IVP ONE (01:30)
[2017-07-31] MEDS: PANTOPRAZOLE SODIUM 40 MG/VIAL IVP SCH ×3 (02:05→21:33)
[2017-07-31] MEDS: LevETIRAcetam 500 MG in DEXTROSE 5%-WATER 100 ML IV SCH ×3 (02:05→21:34)
[2017-07-31] MEDS: MetroNIDAZOLE 500 MG TABLET NG SCH ×3 (02:06→16:29)
[2017-07-31] MEDS: DOXYCYCLINE 100 MG CAPSULE NG SCH ×3 (02:06→21:35)
[2017-07-31] MEDS: MethylPREDNISolone SOD SUCC 125 MG/2 ML VIAL IVP SCH ×4 (02:06→19:02)
[2017-07-31] MEDS: RIFAXIMIN 550 MG TABLET PO SCH ×3 (02:06→21:35)
[2017-07-31 02:42] LABS: CALCIUM, TOTAL 9.5 mg/dL (8.8-10.5); CREATININE 2.39 mg/dL (0.60-1.30); POTASSIUM 3.8 mmol/L (3.5-5.1)
[2017-07-31] MEDS: ALBUMIN HUMAN 25%-25GM/100ML 100 ML IV SCH ×2 (03:11→11:00)
[2017-07-31] MEDS ORDERED: SODIUM CHLORIDE 0.9% 100 ML ONE (03:27)
[2017-07-31] MEDS ORDERED: CALCIUM GLUCONATE 3,000 MG in SODIUM CHLORIDE 0.9% 250 ML IV ONE (08:00)
[2017-07-31] MEDS: LACTULOSE 20 GM/30 ML SOLUTION UDCUP PO SCH (08:26)
[2017-07-31] MEDS: VITAMIN B COMP/VIT C/FOLIC ACID CAPSULE PO SCH (08:26)
[2017-07-31] MEDS: DOCUSATE SODIUM 100 MG CAPSULE PO SCH ×2 (08:27→21:00)
[2017-07-31] MEDS ORDERED: SODIUM CHLORIDE 0.9% 1,000 ML IV ONE (10:04)
[2017-07-31 10:30] LABS: BASOPHILS % (AUTO) 0.3 % (0.0-2.0); EOSINOPHILS % (AUTO) 0.1 % (1.0-6.0); LYMPHOCYTES # (AUTO) 1.5 K/uL (1.0-4.8); LYMPHOCYTES % (AUTO) 9.1 % (22.0-44.0); MEAN CORPUSCULAR VOLUME 91 fL (80-100); MONOCYTES # (AUTO) 0.9 K/uL (0.1-1.0); MONOCYTES % (AUTO) 5.4 % (2.0-9.0); NEUTROPHILS # (AUTO) 14.2 K/uL (1.8-7.7); NEUTROPHILS % (AUTO) 85.1 % (40.0-70.0); PLATELET COUNT (AUTO) 26 K/uL (150-450); RED BLOOD CELL COUNT(AUTO) 2.15 MIL/uL (4.50-5.90); RED CELL DISTRIBUTION WIDTH 25.7 % (11.5-14.5)
[2017-07-31 10:36] LABS: CALCIUM, TOTAL 9.2 mg/dL (8.8-10.5); CREATININE 2.3 mg/dL (0.60-1.30); HEMATOCRIT 19.6 % (41-53); HEMOGLOBIN 6.7 g/dL (13.5-17.5); POTASSIUM 3.8 mmol/L (3.5-5.1)
[2017-07-31] MEDS ORDERED: SODIUM CHLORIDE 0.9% 250 ML IV ONE (16:16)
[2017-08-01] VITALS (8 sets, daily range): BP systolic 110–124; BP diastolic 62–81
[2017-08-01] MEDS: LORazepam 2 MG/ML VIAL IVP PRN (02:56)
[2017-08-01] MEDS ORDERED: SODIUM CHLORIDE 0.9% 100 ML ONE (05:19)
[2017-08-01] MEDS: MethylPREDNISolone SOD SUCC 125 MG/2 ML VIAL IVP SCH ×5 (05:25→23:34)
[2017-08-01 06:21] LABS: BASOPHILS % (AUTO) 0.1 % (0.0-2.0); EOSINOPHILS % (AUTO) 0 % (1.0-6.0); HEMATOCRIT 22.5 % (41-53); LYMPHOCYTES # (AUTO) 1.6 K/uL (1.0-4.8); MEAN CORPUSCULAR HEMOGLOBIN 31.7 pg (26.0-34.0); MEAN CORPUSCULAR HGB CONC 35.6 G/dL (31.0-37.0); MEAN CORPUSCULAR VOLUME 89 fL (80-100); MONOCYTES # (AUTO) 1.1 K/uL (0.1-1.0); MONOCYTES % (AUTO) 5.4 % (2.0-9.0); NEUTROPHILS # (AUTO) 17.3 K/uL (1.8-7.7); PLATELET COUNT (AUTO) 149 K/uL (150-450); RED BLOOD CELL COUNT(AUTO) 2.52 MIL/uL (4.50-5.90); RED CELL DISTRIBUTION WIDTH 25.5 % (11.5-14.5)
[2017-08-01 06:40] LABS: CALCIUM, TOTAL 8.7 mg/dL (8.8-10.5); CREATININE 2.17 mg/dL (0.60-1.30); MAGNESIUM 1.4 mg/dL (1.80-2.40); PHOSPHORUS 4.9 mg/dL (2.5-4.9); POTASSIUM 3.7 mmol/L (3.5-5.1)
[2017-08-01 06:42] LABS: NEUTROPHILS % (AUTO) 86.5 % (40.0-70.0)
[2017-08-01] MEDS ORDERED: CALCIUM GLUCONATE 3,000 MG in SODIUM CHLORIDE 0.9% 250 ML IV ONE (07:00)
[2017-08-01] MEDS ORDERED: SODIUM CHLORIDE 0.9% 2,000 ML IV ONE (07:12)
[2017-08-01] MEDS: DOXYCYCLINE 100 MG CAPSULE NG SCH ×2 (10:58→20:28)
[2017-08-01] MEDS: LACTULOSE 20 GM/30 ML SOLUTION UDCUP PO SCH (10:58)
[2017-08-01] MEDS: MetroNIDAZOLE 500 MG TABLET PO SCH ×2 (10:58)
[2017-08-01] MEDS: RIFAXIMIN 550 MG TABLET PO SCH ×2 (10:58→20:28)
[2017-08-01] MEDS: VITAMIN B COMP/VIT C/FOLIC ACID CAPSULE PO SCH (10:58)
[2017-08-01] MEDS: PANTOPRAZOLE SODIUM 40 MG/VIAL IVP SCH ×2 (10:59→20:28)
[2017-08-01] MEDS: LevETIRAcetam 500 MG in DEXTROSE 5%-WATER 100 ML IV SCH ×2 (11:00→20:28)
[2017-08-01] MEDS: DOCUSATE SODIUM 100 MG CAPSULE PO SCH ×2 (11:09→20:28)
[2017-08-01] MEDS ORDERED: MAGNESIUM SULFATE 4 GM/WATER 100 ML IV ONE (12:30)
[2017-08-02 04:01] VITALS: BP 131/73
[2017-08-02] MEDS: MethylPREDNISolone SOD SUCC 125 MG/2 ML VIAL IVP SCH (05:39)
[2017-08-02 06:51] LABS: EOSINOPHILS % (AUTO) 0 % (1.0-6.0); HEMATOCRIT 23.5 % (41-53); HEMOGLOBIN 8.2 g/dL (13.5-17.5); LYMPHOCYTES # (AUTO) 1.7 K/uL (1.0-4.8); LYMPHOCYTES % (AUTO) 6.9 % (22.0-44.0); MEAN CORPUSCULAR HGB CONC 34.8 G/dL (31.0-37.0); MEAN CORPUSCULAR VOLUME 92 fL (80-100); MONOCYTES # (AUTO) 1.6 K/uL (0.1-1.0); MONOCYTES % (AUTO) 6.3 % (2.0-9.0); NEUTROPHILS # (AUTO) 21.3 K/uL (1.8-7.7); PLATELET COUNT (AUTO) 243 K/uL (150-450); RED BLOOD CELL COUNT(AUTO) 2.56 MIL/uL (4.50-5.90); RED CELL DISTRIBUTION WIDTH 24.7 % (11.5-14.5)
[2017-08-02 07:02] LABS: NEUTROPHILS % (AUTO) 86.8 % (40.0-70.0)
[2017-08-02 07:18] LABS: MAGNESIUM 1.8 mg/dL (1.80-2.40)
[2017-08-02 07:30] VITALS: BP 120/72
[2017-08-02] MEDS ORDERED: CALCIUM GLUCONATE 3,000 MG in SODIUM CHLORIDE 0.9% 250 ML IV ONE (08:00)
[2017-08-02] MEDS: DOCUSATE SODIUM 100 MG CAPSULE PO SCH ×2 (09:00→20:06)
[2017-08-02] MEDS: LACTULOSE 20 GM/30 ML SOLUTION UDCUP PO SCH (09:00)
[2017-08-02] MEDS: DOXYCYCLINE 100 MG CAPSULE NG SCH ×2 (10:54→20:06)
[2017-08-02] MEDS: PANTOPRAZOLE SODIUM 40 MG/VIAL IVP SCH ×2 (10:54→20:06)
[2017-08-02] MEDS: RIFAXIMIN 550 MG TABLET PO SCH ×2 (10:54→20:06)
[2017-08-02] MEDS: LevETIRAcetam 500 MG in DEXTROSE 5%-WATER 100 ML IV SCH ×2 (10:54→20:16)
[2017-08-02] MEDS: VITAMIN B COMP/VIT C/FOLIC ACID CAPSULE PO SCH (10:54)
[2017-08-02 11:15] VITALS: BP 152/79
[2017-08-02 11:22] LABS: BARTONELLA QUINTANA IGG TITER Negative titer (Neg:<1:320); BARTONELLA QUINTANA IGM TITER Negative titer (Neg:<1:100)
[2017-08-02 15:46] VITALS: BP 142/84
[2017-08-02 19:44] VITALS: BP 117/62
[2017-08-02] MEDS: ACETAMINOPHEN 650 MG/20.3 ML SOLUTION UDCUP NG PRN (23:31)
[2017-08-02 23:52] VITALS: BP 131/65
[2017-08-03 05:39] VITALS: BP 120/71
[2017-08-03 07:05] LABS: BASOPHILS % (AUTO) 0.2 % (0.0-2.0); EOSINOPHILS % (AUTO) 0.8 % (1.0-6.0); HEMATOCRIT 24.8 % (41-53); HEMOGLOBIN 8.6 g/dL (13.5-17.5); LYMPHOCYTES # (AUTO) 3.3 K/uL (1.0-4.8); LYMPHOCYTES % (AUTO) 17.7 % (22.0-44.0); MEAN CORPUSCULAR HEMOGLOBIN 32.3 pg (26.0-34.0); MEAN CORPUSCULAR HGB CONC 34.9 G/dL (31.0-37.0); MEAN CORPUSCULAR VOLUME 93 fL (80-100); MONOCYTES # (AUTO) 2.1 K/uL (0.1-1.0); MONOCYTES % (AUTO) 11.3 % (2.0-9.0); PLATELET COUNT (AUTO) 290 K/uL (150-450); RED BLOOD CELL COUNT(AUTO) 2.67 MIL/uL (4.50-5.90); RED CELL DISTRIBUTION WIDTH 24.5 % (11.5-14.5)
[2017-08-03 07:18] VITALS: BP 117/75
[2017-08-03 07:20] LABS: ALBUMIN 3.5 g/dL (3.4-5.0); BILIRUBIN,TOTAL 1.1 mg/dL (0.1-1.0); CALCIUM, TOTAL 8.7 mg/dL (8.8-10.5); CREATININE 1.55 mg/dL (0.60-1.30); MAGNESIUM 1.5 mg/dL (1.80-2.40); POTASSIUM 3.4 mmol/L (3.5-5.1); TOTAL PROTEIN, SERUM 6.4 g/dL (6.4-8.2)
[2017-08-03] MEDS: DOXYCYCLINE 100 MG CAPSULE NG SCH ×2 (08:04→20:22)
[2017-08-03] MEDS: RIFAXIMIN 550 MG TABLET PO SCH ×2 (08:04→20:22)
[2017-08-03] MEDS: VITAMIN B COMP/VIT C/FOLIC ACID CAPSULE PO SCH (08:04)
[2017-08-03] MEDS: DOCUSATE SODIUM 100 MG CAPSULE PO SCH ×2 (08:04→20:22)
[2017-08-03] MEDS: LevETIRAcetam 500 MG in DEXTROSE 5%-WATER 100 ML IV SCH ×2 (08:04→20:24)
[2017-08-03] MEDS: PANTOPRAZOLE SODIUM 40 MG/VIAL IVP SCH ×2 (08:04→20:23)
[2017-08-03] MEDS ORDERED: SODIUM CHLORIDE 0.9% 2,000 ML IV ONE (08:28)
[2017-08-03] MEDS ORDERED: CALCIUM GLUCONATE 3,000 MG in SODIUM CHLORIDE 0.9% 250 ML IV ONE (08:45)
[2017-08-03] MEDS ORDERED: POTASSIUM CHLORIDE 10% 40 MEQ/30 ML LIQUID UDCUP PO ONE (10:15)
[2017-08-03] MEDS ORDERED: POTASSIUM CHLORIDE 20 MEQ ER TABLET PO ONE (10:45)
[2017-08-03 10:54] LABS: ADAMTS13 ACTIVITY <2.0 % (>66.8)
[2017-08-03] MEDS: MAGNESIUM OXIDE 400 MG TABLET PO SCH ×2 (11:13→20:22)
[2017-08-03 11:29] VITALS: BP 110/68
[2017-08-03 15:29] VITALS: BP 92/50
[2017-08-03 19:37] VITALS: BP 120/71
[2017-08-03 23:49] VITALS: BP 110/61
[2017-08-04] VITALS (8 sets, daily range): BP systolic 98–119; BP diastolic 51–68
[2017-08-04 05:53] LABS: BASOPHILS % (AUTO) 0.4 % (0.0-2.0); EOSINOPHILS % (AUTO) 1.5 % (1.0-6.0); HEMATOCRIT 25.4 % (41-53); HEMOGLOBIN 8.9 g/dL (13.5-17.5); LYMPHOCYTES # (AUTO) 2.5 K/uL (1.0-4.8); MEAN CORPUSCULAR HEMOGLOBIN 32.8 pg (26.0-34.0); MEAN CORPUSCULAR HGB CONC 34.9 G/dL (31.0-37.0); MEAN CORPUSCULAR VOLUME 94 fL (80-100); MONOCYTES # (AUTO) 1.9 K/uL (0.1-1.0); MONOCYTES % (AUTO) 12.1 % (2.0-9.0); NEUTROPHILS # (AUTO) 10.9 K/uL (1.8-7.7); PLATELET COUNT (AUTO) 299 K/uL (150-450); RED BLOOD CELL COUNT(AUTO) 2.71 MIL/uL (4.50-5.90); RED CELL DISTRIBUTION WIDTH 23.6 % (11.5-14.5)
[2017-08-04 06:02] LABS: ALBUMIN 3.5 g/dL (3.4-5.0); CALCIUM, TOTAL 8.8 mg/dL (8.8-10.5); CREATININE 1.5 mg/dL (0.60-1.30); MAGNESIUM 1.5 mg/dL (1.80-2.40); POTASSIUM 3.9 mmol/L (3.5-5.1); TOTAL PROTEIN, SERUM 6.5 g/dL (6.4-8.2)
[2017-08-04] MEDS: LevETIRAcetam 500 MG in DEXTROSE 5%-WATER 100 ML IV SCH ×2 (08:23→20:05)
[2017-08-04] MEDS: PANTOPRAZOLE SODIUM 40 MG/VIAL IVP SCH ×2 (08:23→20:05)
[2017-08-04] MEDS: RIFAXIMIN 550 MG TABLET PO SCH ×2 (08:24→20:05)
[2017-08-04] MEDS: VITAMIN B COMP/VIT C/FOLIC ACID CAPSULE PO SCH (08:24)
[2017-08-04] MEDS: DOXYCYCLINE 100 MG CAPSULE NG SCH ×2 (08:24→20:05)
[2017-08-04] MEDS: DOCUSATE SODIUM 100 MG CAPSULE PO SCH ×2 (08:24→20:05)
[2017-08-04] MEDS ORDERED: SODIUM CHLORIDE 0.9% 2,000 ML IV ONE (10:00)
[2017-08-04] MEDS ORDERED: CALCIUM GLUCONATE 3,000 MG in SODIUM CHLORIDE 0.9% 250 ML IV ONE (10:30)
[2017-08-04] MEDS: MAGNESIUM OXIDE 400 MG TABLET PO SCH ×2 (13:36→20:05)
[2017-08-04] MEDS: ACETAMINOPHEN 650 MG/20.3 ML SOLUTION UDCUP NG PRN (20:06)
[2017-08-05] VITALS (12 sets, daily range): BP systolic 107–134; BP diastolic 54–74
[2017-08-05 06:35] LABS: BASOPHILS % (AUTO) 0.6 % (0.0-2.0); EOSINOPHILS % (AUTO) 1.9 % (1.0-6.0); HEMATOCRIT 26.4 % (41-53); HEMOGLOBIN 9.5 g/dL (13.5-17.5); LYMPHOCYTES # (AUTO) 2.6 K/uL (1.0-4.8); LYMPHOCYTES % (AUTO) 17.5 % (22.0-44.0); MEAN CORPUSCULAR HEMOGLOBIN 34.2 pg (26.0-34.0); MEAN CORPUSCULAR VOLUME 95 fL (80-100); MONOCYTES # (AUTO) 1.4 K/uL (0.1-1.0); MONOCYTES % (AUTO) 9.9 % (2.0-9.0); NEUTROPHILS # (AUTO) 10.2 K/uL (1.8-7.7); NEUTROPHILS % (AUTO) 70.1 % (40.0-70.0); PLATELET COUNT (AUTO) 314 K/uL (150-450); RED BLOOD CELL COUNT(AUTO) 2.78 MIL/uL (4.50-5.90); RED CELL DISTRIBUTION WIDTH 23.8 % (11.5-14.5)
[2017-08-05 06:40] LABS: PROTHROMBIN TIME 10.7 SEC (9.4-11.6)
[2017-08-05 07:04] LABS: % IRON SATURATION 42.8 % (30-44)
[2017-08-05 07:36] LABS: ALBUMIN 3.6 g/dL (3.4-5.0); BILIRUBIN,TOTAL 0.7 mg/dL (0.1-1.0); CALCIUM, TOTAL 8.7 mg/dL (8.8-10.5); CREATININE 1.44 mg/dL (0.60-1.30); POTASSIUM 4.1 mmol/L (3.5-5.1); TOTAL PROTEIN, SERUM 6.8 g/dL (6.4-8.2)
[2017-08-05] MEDS ORDERED: HEPARIN SODIUM 1000 UNITS/NS 500 ML ONE (07:36)
[2017-08-05] MEDS ORDERED: HEPARIN SODIUM,PORCINE 1,000 UNITS/ML 10 ML VIAL ONE (07:36)
[2017-08-05 08:06] LABS: FOLATE SERUM 16.7 ng/mL (5.4-)
[2017-08-05] MEDS ORDERED: NALOXONE HCL 0.4 MG/ML VIAL ONE (08:22)
[2017-08-05] MEDS ORDERED: FLUMAZENIL 0.1 MG/ML 5 ML VIAL IVP ONE (08:22)
[2017-08-05] MEDS ORDERED: MIDAZOLAM HCL 2 MG/2 ML VIAL ONE ×2 (08:22→09:33)
[2017-08-05] MEDS ORDERED: FentaNYL CITRATE-PF 100 MCG/2 ML VIAL ONE (08:22)
[2017-08-05] MEDS ORDERED: MIDAZOLAM HCL 2 MG/2 ML VIAL IVP ONE (09:38)
[2017-08-05] MEDS ORDERED: FentaNYL CITRATE-PF 100 MCG/2 ML VIAL IVP ONE (09:38)
[2017-08-05] MEDS: RIFAXIMIN 550 MG TABLET PO SCH ×2 (10:45→20:35)
[2017-08-05] MEDS: LevETIRAcetam 500 MG in DEXTROSE 5%-WATER 100 ML IV SCH ×2 (10:45→20:36)
[2017-08-05] MEDS: DOXYCYCLINE 100 MG CAPSULE NG SCH ×2 (10:45→20:35)
[2017-08-05] MEDS: VITAMIN B COMP/VIT C/FOLIC ACID CAPSULE PO SCH (10:45)
[2017-08-05] MEDS: DOCUSATE SODIUM 100 MG CAPSULE PO SCH ×2 (10:45→20:35)
[2017-08-05] MEDS: MAGNESIUM OXIDE 400 MG TABLET PO SCH ×2 (10:45→20:35)
[2017-08-05] MEDS: PANTOPRAZOLE SODIUM 40 MG/VIAL IVP SCH ×2 (10:45→20:35)
[2017-08-05] MEDS ORDERED: SODIUM CHLORIDE 0.9% 1,000 ML IV ONE (13:31)
[2017-08-05] MEDS ORDERED: CALCIUM GLUCONATE 3,000 MG in SODIUM CHLORIDE 0.9% 250 ML IV ONE (13:45)
[2017-08-05] MEDS: ACETAMINOPHEN 650 MG/20.3 ML SOLUTION UDCUP NG PRN (18:24)
[2017-08-06] MEDS: ACETAMINOPHEN 650 MG/20.3 ML SOLUTION UDCUP NG PRN ×3 (02:09→22:55)
[2017-08-06 05:02] VITALS: BP 105/63
[2017-08-06 06:00] LABS: EOSINOPHILS % (AUTO) 1.5 % (1.0-6.0); HEMATOCRIT 27.2 % (41-53); HEMOGLOBIN 9.8 g/dL (13.5-17.5); LYMPHOCYTES # (AUTO) 2.6 K/uL (1.0-4.8); LYMPHOCYTES % (AUTO) 17.7 % (22.0-44.0); MEAN CORPUSCULAR HEMOGLOBIN 34.2 pg (26.0-34.0); MEAN CORPUSCULAR VOLUME 95 fL (80-100); MONOCYTES # (AUTO) 1.4 K/uL (0.1-1.0); MONOCYTES % (AUTO) 9.7 % (2.0-9.0); NEUTROPHILS # (AUTO) 10.3 K/uL (1.8-7.7); NEUTROPHILS % (AUTO) 70.1 % (40.0-70.0); PLATELET COUNT (AUTO) 297 K/uL (150-450); RED BLOOD CELL COUNT(AUTO) 2.87 MIL/uL (4.50-5.90); RED CELL DISTRIBUTION WIDTH 23.6 % (11.5-14.5)
[2017-08-06 06:34] LABS: ALANINE AMINOTRANSFERASE 185 U/L (12-78); ALBUMIN 3.4 g/dL (3.4-5.0); ALKALINE PHOSPHATASE 109 U/L (46-116); ANION GAP 8 mmol/L (8-16); ASPARTATE AMINOTRANSFERASE 153 U/L (15-37); BILIRUBIN,TOTAL 0.6 mg/dL (0.1-1.0); CALCIUM, TOTAL 8.3 mg/dL (8.8-10.5); CARBON DIOXIDE 31 mmol/L (22-29); CHLORIDE 99 mmol/L (98-107); CREATININE 1.31 mg/dL (0.60-1.30); GLOMERULAR FILTR. RATE CALC > 60 mL/min (>60); GLUCOSE,RANDOM 96 mg/dL (70-110); LACTATE DEHYDROGENASE 219 U/L (85-227); POTASSIUM 3.7 mmol/L (3.5-5.1); SODIUM SERUM 138 mmol/L (136-145); TOTAL PROTEIN, SERUM 6.6 g/dL (6.4-8.2); UREA NITROGEN, BLOOD 27 mg/dL (7-18)
[2017-08-06 07:22] VITALS: BP 107/68
[2017-08-06] MEDS: PANTOPRAZOLE SODIUM 40 MG/VIAL IVP SCH ×2 (08:19→20:02)
[2017-08-06] MEDS: LevETIRAcetam 500 MG in DEXTROSE 5%-WATER 100 ML IV SCH ×2 (08:19→20:02)
[2017-08-06] MEDS: DOXYCYCLINE 100 MG CAPSULE NG SCH ×2 (08:20→20:02)
[2017-08-06] MEDS: VITAMIN B COMP/VIT C/FOLIC ACID CAPSULE PO SCH (08:21)
[2017-08-06] MEDS: MAGNESIUM OXIDE 400 MG TABLET PO SCH (08:21)
[2017-08-06] MEDS: DOCUSATE SODIUM 100 MG CAPSULE PO SCH ×2 (08:21→20:02)
[2017-08-06] MEDS: RIFAXIMIN 550 MG TABLET PO SCH ×2 (08:21→20:02)
[2017-08-06] MEDS: MAGNESIUM CHLORIDE 64 MG ER TABLET PO SCH ×2 (10:29→20:03)
[2017-08-06 11:17] VITALS: BP 112/63
[2017-08-06 15:40] VITALS: BP 110/66
[2017-08-06 19:28] VITALS: BP 118/70
[2017-08-06] MEDS ORDERED: SODIUM CHLORIDE 0.9% 250 ML IV ONE (20:06)
[2017-08-07] VITALS (7 sets, daily range): BP systolic 106–125; BP diastolic 58–72
[2017-08-07] MEDS: ACETAMINOPHEN 650 MG/20.3 ML SOLUTION UDCUP NG PRN ×2 (05:18→17:45)
[2017-08-07 06:25] LABS: BASOPHILS % (AUTO) 1.2 % (0.0-2.0); EOSINOPHILS % (AUTO) 2.4 % (1.0-6.0); HEMATOCRIT 25.6 % (41-53); HEMOGLOBIN 8.9 g/dL (13.5-17.5); LYMPHOCYTES # (AUTO) 2.4 K/uL (1.0-4.8); LYMPHOCYTES % (AUTO) 19.9 % (22.0-44.0); MEAN CORPUSCULAR HEMOGLOBIN 33.3 pg (26.0-34.0); MEAN CORPUSCULAR HGB CONC 34.6 G/dL (31.0-37.0); MEAN CORPUSCULAR VOLUME 96 fL (80-100); MONOCYTES # (AUTO) 1.2 K/uL (0.1-1.0); MONOCYTES % (AUTO) 10.2 % (2.0-9.0); NEUTROPHILS # (AUTO) 8.1 K/uL (1.8-7.7); NEUTROPHILS % (AUTO) 66.3 % (40.0-70.0); PLATELET COUNT (AUTO) 297 K/uL (150-450); RED BLOOD CELL COUNT(AUTO) 2.66 MIL/uL (4.50-5.90); RED CELL DISTRIBUTION WIDTH 23.7 % (11.5-14.5)
[2017-08-07 06:26] LABS: ALANINE AMINOTRANSFERASE 207 U/L (12-78); ALBUMIN 3.1 g/dL (3.4-5.0); ALKALINE PHOSPHATASE 121 U/L (46-116); ANION GAP 7 mmol/L (8-16); ASPARTATE AMINOTRANSFERASE 148 U/L (15-37); BILIRUBIN,TOTAL 0.4 mg/dL (0.1-1.0); CALCIUM, TOTAL 8.3 mg/dL (8.8-10.5); CARBON DIOXIDE 28 mmol/L (22-29); CHLORIDE 102 mmol/L (98-107); CREATININE 1.21 mg/dL (0.60-1.30); GLOMERULAR FILTR. RATE CALC > 60 mL/min (>60); GLUCOSE,RANDOM 129 mg/dL (70-110); LACTATE DEHYDROGENASE 199 U/L (85-227); POTASSIUM 3.5 mmol/L (3.5-5.1); SODIUM SERUM 137 mmol/L (136-145); TOTAL PROTEIN, SERUM 6.3 g/dL (6.4-8.2); UREA NITROGEN, BLOOD 28 mg/dL (7-18)
[2017-08-07] MEDS ORDERED: CALCIUM GLUCONATE 100 MG/ML 10 ML IVP ONE ×2 (09:15→12:30)
[2017-08-07] MEDS: DOXYCYCLINE 100 MG CAPSULE NG SCH (09:37)
[2017-08-07] MEDS: LevETIRAcetam 500 MG in DEXTROSE 5%-WATER 100 ML IV SCH ×2 (09:37→21:46)
[2017-08-07] MEDS: VITAMIN B COMP/VIT C/FOLIC ACID CAPSULE PO SCH (09:37)
[2017-08-07] MEDS: MAGNESIUM CHLORIDE 64 MG ER TABLET PO SCH ×2 (09:37→21:45)
[2017-08-07] MEDS: DOCUSATE SODIUM 100 MG CAPSULE PO SCH ×2 (09:38→21:00)
[2017-08-07] MEDS: RIFAXIMIN 550 MG TABLET PO SCH ×2 (09:38→21:45)
[2017-08-07] MEDS: PANTOPRAZOLE SODIUM 40 MG/VIAL IVP SCH ×2 (09:38→21:45)
[2017-08-07] MEDS ORDERED: CALCIUM GLUCONATE 3,000 MG in SODIUM CHLORIDE 0.9% 250 ML IV ONE (12:45)
[2017-08-07] MEDS ORDERED: HEPARIN SODIUM,PORCINE 1,000 UNITS/ML VIAL IVP ONE (18:20)
[2017-08-08 04:43] VITALS: BP 116/70
[2017-08-08 06:21] LABS: BASOPHILS % (AUTO) 1.5 % (0.0-2.0); EOSINOPHILS % (AUTO) 2.6 % (1.0-6.0); HEMATOCRIT 27.7 % (41-53); HEMOGLOBIN 9.9 g/dL (13.5-17.5); MEAN CORPUSCULAR HEMOGLOBIN 34.6 pg (26.0-34.0); MEAN CORPUSCULAR HGB CONC 35.9 G/dL (31.0-37.0); MEAN CORPUSCULAR VOLUME 96 fL (80-100); MONOCYTES # (AUTO) 1.1 K/uL (0.1-1.0); MONOCYTES % (AUTO) 11.3 % (2.0-9.0); NEUTROPHILS # (AUTO) 6.4 K/uL (1.8-7.7); NEUTROPHILS % (AUTO) 64.6 % (40.0-70.0); PLATELET COUNT (AUTO) 292 K/uL (150-450); RED BLOOD CELL COUNT(AUTO) 2.87 MIL/uL (4.50-5.90); RED CELL DISTRIBUTION WIDTH 23.3 % (11.5-14.5)
[2017-08-08 06:59] LABS: ALANINE AMINOTRANSFERASE 178 U/L (12-78); ALBUMIN 3.4 g/dL (3.4-5.0); ALKALINE PHOSPHATASE 94 U/L (46-116); ANION GAP 9 mmol/L (8-16); ASPARTATE AMINOTRANSFERASE 136 U/L (15-37); BILIRUBIN,TOTAL 0.5 mg/dL (0.1-1.0); CALCIUM, TOTAL 8.7 mg/dL (8.8-10.5); CARBON DIOXIDE 28 mmol/L (22-29); CHLORIDE 103 mmol/L (98-107); CREATININE 1.24 mg/dL (0.60-1.30); GLOMERULAR FILTR. RATE CALC > 60 mL/min (>60); GLUCOSE,RANDOM 135 mg/dL (70-110); POTASSIUM 3.8 mmol/L (3.5-5.1); SODIUM SERUM 140 mmol/L (136-145); TOTAL PROTEIN, SERUM 6.6 g/dL (6.4-8.2); UREA NITROGEN, BLOOD 25 mg/dL (7-18)
[2017-08-08 07:11] VITALS: BP 120/66
[2017-08-08 07:15] LABS: LACTATE DEHYDROGENASE 212 U/L (85-227)
[2017-08-08] MEDS: VITAMIN B COMP/VIT C/FOLIC ACID CAPSULE PO SCH (09:03)
[2017-08-08] MEDS: DOCUSATE SODIUM 100 MG CAPSULE PO SCH ×2 (09:03→20:03)
[2017-08-08] MEDS: PANTOPRAZOLE SODIUM 40 MG/VIAL IVP SCH ×2 (09:03→20:37)
[2017-08-08] MEDS: RIFAXIMIN 550 MG TABLET PO SCH ×2 (09:03→20:35)
[2017-08-08] MEDS: MAGNESIUM CHLORIDE 64 MG ER TABLET PO SCH ×2 (09:03→20:35)
[2017-08-08] MEDS: LevETIRAcetam 500 MG in DEXTROSE 5%-WATER 100 ML IV SCH ×2 (09:03→20:36)
[2017-08-08 11:13] VITALS: BP 134/74
[2017-08-08 15:39] VITALS: BP 128/66
[2017-08-08] MEDS: CALCIUM OYSTER SHELL 500 MG TABLET PO SCH ×2 (16:50→20:31)
[2017-08-08] MEDS: ACETAMINOPHEN 650 MG/20.3 ML SOLUTION UDCUP NG PRN (18:50)
[2017-08-08 20:01] VITALS: BP 103/63
[2017-08-08] MEDS ORDERED: SODIUM CHLORIDE 0.9% 250 ML IV ONE (20:50)
[2017-08-09] VITALS (7 sets, daily range): BP systolic 104–121; BP diastolic 61–73
[2017-08-09 06:28] LABS: BASOPHILS % (AUTO) 1.2 % (0.0-2.0); EOSINOPHILS % (AUTO) 2.6 % (1.0-6.0); HEMATOCRIT 27.2 % (41-53); HEMOGLOBIN 9.4 g/dL (13.5-17.5); LYMPHOCYTES % (AUTO) 19.8 % (22.0-44.0); MEAN CORPUSCULAR HEMOGLOBIN 33.3 pg (26.0-34.0); MEAN CORPUSCULAR HGB CONC 34.7 G/dL (31.0-37.0); MEAN CORPUSCULAR VOLUME 96 fL (80-100); MONOCYTES # (AUTO) 1.2 K/uL (0.1-1.0); MONOCYTES % (AUTO) 11.3 % (2.0-9.0); NEUTROPHILS # (AUTO) 6.7 K/uL (1.8-7.7); NEUTROPHILS % (AUTO) 65.1 % (40.0-70.0); PLATELET COUNT (AUTO) 292 K/uL (150-450); RED BLOOD CELL COUNT(AUTO) 2.84 MIL/uL (4.50-5.90); RED CELL DISTRIBUTION WIDTH 22.8 % (11.5-14.5)
[2017-08-09 06:59] LABS: ALANINE AMINOTRANSFERASE 194 U/L (12-78); ALBUMIN 3.4 g/dL (3.4-5.0); ALKALINE PHOSPHATASE 100 U/L (46-116); ANION GAP 8 mmol/L (8-16); ASPARTATE AMINOTRANSFERASE 132 U/L (15-37); BILIRUBIN,TOTAL 0.4 mg/dL (0.1-1.0); CALCIUM, TOTAL 8.9 mg/dL (8.8-10.5); CARBON DIOXIDE 28 mmol/L (22-29); CHLORIDE 104 mmol/L (98-107); CREATININE 1.12 mg/dL (0.60-1.30); GLOMERULAR FILTR. RATE CALC > 60 mL/min (>60); GLUCOSE,RANDOM 95 mg/dL (70-110); SODIUM SERUM 140 mmol/L (136-145); TOTAL PROTEIN, SERUM 6.7 g/dL (6.4-8.2); UREA NITROGEN, BLOOD 24 mg/dL (7-18)
[2017-08-09 07:36] LABS: LACTATE DEHYDROGENASE 200 U/L (85-227)
[2017-08-09] MEDS ORDERED: SODIUM CHLORIDE 0.9% 2,000 ML IV ONE (07:44)
[2017-08-09] MEDS ORDERED: CALCIUM GLUCONATE 100 MG/ML 10 ML IVP ONE (07:45)
[2017-08-09] MEDS ORDERED: CALCIUM GLUCONATE 3,000 MG in SODIUM CHLORIDE 0.9% 250 ML IV ONE (08:15)
[2017-08-09] MEDS: PANTOPRAZOLE SODIUM 40 MG/VIAL IVP SCH ×2 (08:38→20:43)
[2017-08-09] MEDS: LevETIRAcetam 500 MG in DEXTROSE 5%-WATER 100 ML IV SCH ×2 (08:38→20:42)
[2017-08-09] MEDS: VITAMIN B COMP/VIT C/FOLIC ACID CAPSULE PO SCH (08:39)
[2017-08-09] MEDS: CALCIUM OYSTER SHELL 500 MG TABLET PO SCH ×2 (08:39→17:28)
[2017-08-09] MEDS: RIFAXIMIN 550 MG TABLET PO SCH ×2 (08:40→20:44)
[2017-08-09] MEDS: MAGNESIUM CHLORIDE 64 MG ER TABLET PO SCH ×2 (08:40→20:45)
[2017-08-09] MEDS: DOCUSATE SODIUM 100 MG CAPSULE PO SCH ×2 (08:41→20:44)
[2017-08-09] MEDS: ACETAMINOPHEN 325 MG TABLET PO PRN (17:28)
[2017-08-10 04:52] VITALS: BP 112/66
[2017-08-10 06:25] LABS: EOSINOPHILS % (AUTO) 2.3 % (1.0-6.0); HEMATOCRIT 27.9 % (41-53); HEMOGLOBIN 9.5 g/dL (13.5-17.5); LYMPHOCYTES # (AUTO) 1.8 K/uL (1.0-4.8); LYMPHOCYTES % (AUTO) 20.6 % (22.0-44.0); MEAN CORPUSCULAR HEMOGLOBIN 32.8 pg (26.0-34.0); MEAN CORPUSCULAR HGB CONC 34.2 G/dL (31.0-37.0); MEAN CORPUSCULAR VOLUME 96 fL (80-100); MONOCYTES % (AUTO) 11.7 % (2.0-9.0); NEUTROPHILS # (AUTO) 5.8 K/uL (1.8-7.7); NEUTROPHILS % (AUTO) 64.4 % (40.0-70.0); PLATELET COUNT (AUTO) 255 K/uL (150-450); RED BLOOD CELL COUNT(AUTO) 2.91 MIL/uL (4.50-5.90)
[2017-08-10 07:35] LABS: ALANINE AMINOTRANSFERASE 173 U/L (12-78); ALBUMIN 3.4 g/dL (3.4-5.0); ALKALINE PHOSPHATASE 93 U/L (46-116); ANION GAP 6 mmol/L (8-16); ASPARTATE AMINOTRANSFERASE 133 U/L (15-37); BILIRUBIN,TOTAL 0.5 mg/dL (0.1-1.0); CARBON DIOXIDE 31 mmol/L (22-29); CHLORIDE 103 mmol/L (98-107); CREATININE 1.21 mg/dL (0.60-1.30); GLOMERULAR FILTR. RATE CALC > 60 mL/min (>60); GLUCOSE,RANDOM 84 mg/dL (70-110); POTASSIUM 4.1 mmol/L (3.5-5.1); SODIUM SERUM 140 mmol/L (136-145); TOTAL PROTEIN, SERUM 6.7 g/dL (6.4-8.2); UREA NITROGEN, BLOOD 19 mg/dL (7-18)
[2017-08-10 07:40] VITALS: BP 98/59
[2017-08-10 07:51] LABS: LACTATE DEHYDROGENASE 213 U/L (85-227)
[2017-08-10] MEDS: DOCUSATE SODIUM 100 MG CAPSULE PO SCH ×3 (08:27→22:03)
[2017-08-10] MEDS: PANTOPRAZOLE SODIUM 40 MG/VIAL IVP SCH ×2 (08:27→22:03)
[2017-08-10] MEDS: RIFAXIMIN 550 MG TABLET PO SCH ×2 (08:27→22:03)
[2017-08-10] MEDS: VITAMIN B COMP/VIT C/FOLIC ACID CAPSULE PO SCH (08:27)
[2017-08-10] MEDS: MAGNESIUM CHLORIDE 64 MG ER TABLET PO SCH ×2 (08:28→22:05)
[2017-08-10] MEDS: LevETIRAcetam 500 MG in DEXTROSE 5%-WATER 100 ML IV SCH ×2 (09:46→22:03)
[2017-08-10 11:43] VITALS: BP 99/63
[2017-08-10 15:34] VITALS: BP 91/47
[2017-08-10 19:58] VITALS: BP 111/60
[2017-08-10] MEDS ORDERED: SODIUM CHLORIDE 0.9% 250 ML IV ONE (22:01)
[2017-08-11] VITALS (10 sets, daily range): BP systolic 95–142; BP diastolic 51–82
[2017-08-11 07:15] LABS: BASOPHILS % (AUTO) 0.9 % (0.0-2.0); EOSINOPHILS % (AUTO) 2.9 % (1.0-6.0); HEMATOCRIT 27.1 % (41-53); HEMOGLOBIN 9.3 g/dL (13.5-17.5); LYMPHOCYTES # (AUTO) 1.8 K/uL (1.0-4.8); LYMPHOCYTES % (AUTO) 22.3 % (22.0-44.0); MEAN CORPUSCULAR HEMOGLOBIN 33.6 pg (26.0-34.0); MEAN CORPUSCULAR HGB CONC 34.5 G/dL (31.0-37.0); MEAN CORPUSCULAR VOLUME 98 fL (80-100); MONOCYTES # (AUTO) 1.1 K/uL (0.1-1.0); MONOCYTES % (AUTO) 13.3 % (2.0-9.0); NEUTROPHILS % (AUTO) 60.6 % (40.0-70.0); PLATELET COUNT (AUTO) 232 K/uL (150-450); RED BLOOD CELL COUNT(AUTO) 2.78 MIL/uL (4.50-5.90); RED CELL DISTRIBUTION WIDTH 22.8 % (11.5-14.5)
[2017-08-11 07:32] LABS: ALANINE AMINOTRANSFERASE 278 U/L (12-78); ALBUMIN 3.2 g/dL (3.4-5.0); ALKALINE PHOSPHATASE 135 U/L (46-116); ANION GAP 9 mmol/L (8-16); ASPARTATE AMINOTRANSFERASE 208 U/L (15-37); BILIRUBIN,TOTAL 0.4 mg/dL (0.1-1.0); CALCIUM, TOTAL 8.5 mg/dL (8.8-10.5); CARBON DIOXIDE 28 mmol/L (22-29); CHLORIDE 105 mmol/L (98-107); CREATININE 1.11 mg/dL (0.60-1.30); GLOMERULAR FILTR. RATE CALC > 60 mL/min (>60); GLUCOSE,RANDOM 85 mg/dL (70-110); LACTATE DEHYDROGENASE 230 U/L (85-227); SODIUM SERUM 142 mmol/L (136-145); TOTAL PROTEIN, SERUM 6.7 g/dL (6.4-8.2); UREA NITROGEN, BLOOD 19 mg/dL (7-18)
[2017-08-11] MEDS ORDERED: CALCIUM GLUCONATE 3,000 MG in SODIUM CHLORIDE 0.9% 250 ML IV ONE (08:15)
[2017-08-11] MEDS: RIFAXIMIN 550 MG TABLET PO SCH ×2 (08:24→20:20)
[2017-08-11] MEDS: VITAMIN B COMP/VIT C/FOLIC ACID CAPSULE PO SCH (08:25)
[2017-08-11] MEDS: MAGNESIUM CHLORIDE 64 MG ER TABLET PO SCH ×2 (08:25→20:19)
[2017-08-11] MEDS: DOCUSATE SODIUM 100 MG CAPSULE PO SCH ×2 (08:25→20:15)
[2017-08-11] MEDS: PANTOPRAZOLE SODIUM 40 MG DR TABLET PO SCH (08:26)
[2017-08-11] MEDS ORDERED: SODIUM CHLORIDE 0.9% 2,000 ML IV ONE (08:59)
[2017-08-11] MEDS: ACETAMINOPHEN 325 MG TABLET PO PRN (20:18)
[2017-08-12 00:04] VITALS: BP 100/65
[2017-08-12 04:12] VITALS: BP 114/76
[2017-08-12 06:38] LABS: BASOPHILS % (AUTO) 0.9 % (0.0-2.0); EOSINOPHILS % (AUTO) 4.3 % (1.0-6.0); HEMATOCRIT 26.4 % (41-53); HEMOGLOBIN 9.6 g/dL (13.5-17.5); LYMPHOCYTES % (AUTO) 25.8 % (22.0-44.0); MEAN CORPUSCULAR HEMOGLOBIN 35.2 pg (26.0-34.0); MEAN CORPUSCULAR HGB CONC 36.3 G/dL (31.0-37.0); MEAN CORPUSCULAR VOLUME 97 fL (80-100); MONOCYTES # (AUTO) 1.1 K/uL (0.1-1.0); MONOCYTES % (AUTO) 13.7 % (2.0-9.0); NEUTROPHILS # (AUTO) 4.4 K/uL (1.8-7.7); NEUTROPHILS % (AUTO) 55.3 % (40.0-70.0); PLATELET COUNT (AUTO) 189 K/uL (150-450); RED BLOOD CELL COUNT(AUTO) 2.72 MIL/uL (4.50-5.90); RED CELL DISTRIBUTION WIDTH 22.7 % (11.5-14.5)
[2017-08-12 06:47] LABS: ALANINE AMINOTRANSFERASE 315 U/L (12-78); ALBUMIN 3.1 g/dL (3.4-5.0); ALKALINE PHOSPHATASE 116 U/L (46-116); ANION GAP 8 mmol/L (8-16); ASPARTATE AMINOTRANSFERASE 260 U/L (15-37); BILIRUBIN,TOTAL 0.4 mg/dL (0.1-1.0); CALCIUM, TOTAL 7.9 mg/dL (8.8-10.5); CARBON DIOXIDE 30 mmol/L (22-29); CHLORIDE 104 mmol/L (98-107); CREATININE 1.09 mg/dL (0.60-1.30); GLOMERULAR FILTR. RATE CALC > 60 mL/min (>60); GLUCOSE,RANDOM 144 mg/dL (70-110); LACTATE DEHYDROGENASE 225 U/L (85-227); POTASSIUM 3.4 mmol/L (3.5-5.1); SODIUM SERUM 142 mmol/L (136-145); TOTAL PROTEIN, SERUM 6.2 g/dL (6.4-8.2); UREA NITROGEN, BLOOD 16 mg/dL (7-18)
[2017-08-12 07:01] VITALS: BP 100/59
[2017-08-12] MEDS: PANTOPRAZOLE SODIUM 40 MG DR TABLET PO SCH (07:48)
[2017-08-12] MEDS: VITAMIN B COMP/VIT C/FOLIC ACID CAPSULE PO SCH (07:48)
[2017-08-12] MEDS: DOCUSATE SODIUM 100 MG CAPSULE PO SCH ×2 (07:49→20:10)
[2017-08-12] MEDS: MAGNESIUM CHLORIDE 64 MG ER TABLET PO SCH ×2 (07:49→20:11)
[2017-08-12] MEDS: RIFAXIMIN 550 MG TABLET PO SCH ×2 (07:49→20:11)
[2017-08-12] MEDS ORDERED: POTASSIUM CHLORIDE 20 MEQ ER TABLET PO ONE (10:30)
[2017-08-12 11:17] VITALS: BP 110/71
[2017-08-12 15:27] VITALS: BP 110/71
[2017-08-12] MEDS: CALCIUM CARBONATE 500 MG CHEWABLE TABLET CHEW SCH ×2 (16:38→20:11)
[2017-08-12] MEDS: ACETAMINOPHEN 325 MG TABLET PO PRN (18:22)
[2017-08-12] MEDS ORDERED: MAGNESIUM SULFATE 2 GM in DEXTROSE 5%-WATER 50 ML IV ONE (18:30)
[2017-08-12 19:47] VITALS: BP 116/69
[2017-08-13] VITALS (10 sets, daily range): BP systolic 99–133; BP diastolic 54–77
[2017-08-13 05:53] LABS: BASOPHILS % (AUTO) 0.7 % (0.0-2.0); EOSINOPHILS % (AUTO) 4.7 % (1.0-6.0); HEMATOCRIT 27.6 % (41-53); HEMOGLOBIN 9.8 g/dL (13.5-17.5); LYMPHOCYTES # (AUTO) 2.4 K/uL (1.0-4.8); LYMPHOCYTES % (AUTO) 30.7 % (22.0-44.0); MEAN CORPUSCULAR HEMOGLOBIN 34.8 pg (26.0-34.0); MEAN CORPUSCULAR HGB CONC 35.6 G/dL (31.0-37.0); MEAN CORPUSCULAR VOLUME 98 fL (80-100); MONOCYTES # (AUTO) 0.9 K/uL (0.1-1.0); MONOCYTES % (AUTO) 11.7 % (2.0-9.0); NEUTROPHILS % (AUTO) 52.2 % (40.0-70.0); PLATELET COUNT (AUTO) 190 K/uL (150-450); RED BLOOD CELL COUNT(AUTO) 2.82 MIL/uL (4.50-5.90); RED CELL DISTRIBUTION WIDTH 22.4 % (11.5-14.5)
[2017-08-13 06:15] LABS: ALANINE AMINOTRANSFERASE 402 U/L (12-78); ALBUMIN 3.3 g/dL (3.4-5.0); ALKALINE PHOSPHATASE 134 U/L (46-116); ANION GAP 7 mmol/L (8-16); ASPARTATE AMINOTRANSFERASE 303 U/L (15-37); BILIRUBIN,TOTAL 0.4 mg/dL (0.1-1.0); CALCIUM, TOTAL 8.3 mg/dL (8.8-10.5); CARBON DIOXIDE 29 mmol/L (22-29); CHLORIDE 105 mmol/L (98-107); CREATININE 1.01 mg/dL (0.60-1.30); GLOMERULAR FILTR. RATE CALC > 60 mL/min (>60); GLUCOSE,RANDOM 87 mg/dL (70-110); LACTATE DEHYDROGENASE 224 U/L (85-227); POTASSIUM 4.2 mmol/L (3.5-5.1); SODIUM SERUM 141 mmol/L (136-145); TOTAL PROTEIN, SERUM 6.6 g/dL (6.4-8.2); UREA NITROGEN, BLOOD 16 mg/dL (7-18)
[2017-08-13] MEDS ORDERED: CALCIUM GLUCONATE IV ONE (08:30)
[2017-08-13] MEDS ORDERED: CALCIUM GLUCONATE 100 MG/ML 10 ML IVP ONE (08:30)
[2017-08-13] MEDS ORDERED: DEXTROSE 5% IV ONE (08:30)
[2017-08-13] MEDS ORDERED: WATER IV ONE (08:30)
[2017-08-13] MEDS: VITAMIN B COMP/VIT C/FOLIC ACID CAPSULE PO SCH (08:44)
[2017-08-13] MEDS: CALCIUM CARBONATE 500 MG CHEWABLE TABLET CHEW SCH ×3 (08:46→20:07)
[2017-08-13] MEDS: PANTOPRAZOLE SODIUM 40 MG DR TABLET PO SCH (08:46)
[2017-08-13] MEDS: RIFAXIMIN 550 MG TABLET PO SCH ×2 (08:47→20:07)
[2017-08-13] MEDS: MAGNESIUM CHLORIDE 64 MG ER TABLET PO SCH ×2 (08:48→20:07)
[2017-08-13] MEDS: DOCUSATE SODIUM 100 MG CAPSULE PO SCH ×2 (09:00→20:07)
[2017-08-13] MEDS: ZOLPIDEM TARTRATE 5 MG TABLET PO PRN (23:43)
[2017-08-14 03:50] VITALS: BP 107/60
[2017-08-14 07:41] VITALS: BP 100/62
[2017-08-14] MEDS: VITAMIN B COMP/VIT C/FOLIC ACID CAPSULE PO SCH (08:09)
[2017-08-14] MEDS: CALCIUM CARBONATE 500 MG CHEWABLE TABLET CHEW SCH ×3 (08:09→20:17)
[2017-08-14] MEDS: PANTOPRAZOLE SODIUM 40 MG DR TABLET PO SCH (08:09)
[2017-08-14] MEDS: MAGNESIUM CHLORIDE 64 MG ER TABLET PO SCH ×2 (08:10→20:17)
[2017-08-14] MEDS: RIFAXIMIN 550 MG TABLET PO SCH ×2 (08:11→20:17)
[2017-08-14] MEDS: DOCUSATE SODIUM 100 MG CAPSULE PO SCH ×2 (09:00→20:18)
[2017-08-14 09:12] LABS: BASOPHILS % (AUTO) 0.8 % (0.0-2.0); EOSINOPHILS % (AUTO) 3.5 % (1.0-6.0); HEMATOCRIT 29.2 % (41-53); HEMOGLOBIN 10.3 g/dL (13.5-17.5); LYMPHOCYTES # (AUTO) 2.5 K/uL (1.0-4.8); LYMPHOCYTES % (AUTO) 29.4 % (22.0-44.0); MEAN CORPUSCULAR HEMOGLOBIN 34.1 pg (26.0-34.0); MEAN CORPUSCULAR HGB CONC 35.2 G/dL (31.0-37.0); MEAN CORPUSCULAR VOLUME 97 fL (80-100); MONOCYTES # (AUTO) 0.6 K/uL (0.1-1.0); MONOCYTES % (AUTO) 7.6 % (2.0-9.0); NEUTROPHILS # (AUTO) 4.9 K/uL (1.8-7.7); NEUTROPHILS % (AUTO) 58.7 % (40.0-70.0); PLATELET COUNT (AUTO) 184 K/uL (150-450); RED BLOOD CELL COUNT(AUTO) 3.01 MIL/uL (4.50-5.90); RED CELL DISTRIBUTION WIDTH 21.9 % (11.5-14.5)
[2017-08-14 09:33] LABS: ALANINE AMINOTRANSFERASE 274 U/L (12-78); ALBUMIN 3.5 g/dL (3.4-5.0); ALKALINE PHOSPHATASE 113 U/L (46-116); ANION GAP 7 mmol/L (8-16); ASPARTATE AMINOTRANSFERASE 197 U/L (15-37); BILIRUBIN,TOTAL 0.3 mg/dL (0.1-1.0); CALCIUM, TOTAL 8.4 mg/dL (8.8-10.5); CARBON DIOXIDE 29 mmol/L (22-29); CHLORIDE 103 mmol/L (98-107); CREATININE 1.03 mg/dL (0.60-1.30); GLOMERULAR FILTR. RATE CALC > 60 mL/min (>60); GLUCOSE,RANDOM 116 mg/dL (70-110); POTASSIUM 3.7 mmol/L (3.5-5.1); SODIUM SERUM 139 mmol/L (136-145); TOTAL PROTEIN, SERUM 6.8 g/dL (6.4-8.2); UREA NITROGEN, BLOOD 16 mg/dL (7-18)
[2017-08-14 09:49] LABS: LACTATE DEHYDROGENASE 217 U/L (85-227)
[2017-08-14 12:07] VITALS: BP 103/65
[2017-08-14 16:10] VITALS: BP 97/56
[2017-08-14 20:26] VITALS: BP 113/50
[2017-08-15] VITALS (7 sets, daily range): BP systolic 104–127; BP diastolic 56–82
[2017-08-15] MEDS: ZOLPIDEM TARTRATE 5 MG TABLET PO PRN (00:19)
[2017-08-15 06:42] LABS: BASOPHILS % (AUTO) 0.8 % (0.0-2.0); EOSINOPHILS % (AUTO) 5.1 % (1.0-6.0); HEMATOCRIT 28.5 % (41-53); LYMPHOCYTES # (AUTO) 2.3 K/uL (1.0-4.8); LYMPHOCYTES % (AUTO) 30.3 % (22.0-44.0); MEAN CORPUSCULAR HEMOGLOBIN 34.5 pg (26.0-34.0); MEAN CORPUSCULAR HGB CONC 35.3 G/dL (31.0-37.0); MEAN CORPUSCULAR VOLUME 98 fL (80-100); MONOCYTES # (AUTO) 0.7 K/uL (0.1-1.0); MONOCYTES % (AUTO) 9.9 % (2.0-9.0); NEUTROPHILS # (AUTO) 4.1 K/uL (1.8-7.7); NEUTROPHILS % (AUTO) 53.9 % (40.0-70.0); PLATELET COUNT (AUTO) 175 K/uL (150-450); RED BLOOD CELL COUNT(AUTO) 2.91 MIL/uL (4.50-5.90); RED CELL DISTRIBUTION WIDTH 21.6 % (11.5-14.5)
[2017-08-15 06:58] LABS: ALANINE AMINOTRANSFERASE 263 U/L (12-78); ALBUMIN 3.3 g/dL (3.4-5.0); ALKALINE PHOSPHATASE 102 U/L (46-116); ANION GAP 6 mmol/L (8-16); ASPARTATE AMINOTRANSFERASE 173 U/L (15-37); BILIRUBIN,TOTAL 0.3 mg/dL (0.1-1.0); CALCIUM, TOTAL 8.5 mg/dL (8.8-10.5); CARBON DIOXIDE 30 mmol/L (22-29); CHLORIDE 103 mmol/L (98-107); CREATININE 1.02 mg/dL (0.60-1.30); GLOMERULAR FILTR. RATE CALC > 60 mL/min (>60); GLUCOSE,RANDOM 115 mg/dL (70-110); POTASSIUM 3.9 mmol/L (3.5-5.1); SODIUM SERUM 139 mmol/L (136-145); TOTAL PROTEIN, SERUM 6.6 g/dL (6.4-8.2); UREA NITROGEN, BLOOD 17 mg/dL (7-18)
[2017-08-15 07:29] LABS: LACTATE DEHYDROGENASE 193 U/L (85-227)
[2017-08-15] MEDS: PANTOPRAZOLE SODIUM 40 MG DR TABLET PO SCH (07:50)
[2017-08-15] MEDS: CALCIUM CARBONATE 500 MG CHEWABLE TABLET CHEW SCH ×3 (07:50→20:47)
[2017-08-15] MEDS: DOCUSATE SODIUM 100 MG CAPSULE PO SCH ×3 (07:50→20:47)
[2017-08-15] MEDS: VITAMIN B COMP/VIT C/FOLIC ACID CAPSULE PO SCH (07:50)
[2017-08-15] MEDS: RIFAXIMIN 550 MG TABLET PO SCH ×2 (07:50→20:46)
[2017-08-15] MEDS: MAGNESIUM CHLORIDE 64 MG ER TABLET PO SCH ×2 (07:51→20:47)
[2017-08-16 04:31] VITALS: BP 106/70
[2017-08-16 06:56] LABS: BASOPHILS % (AUTO) 0.8 % (0.0-2.0); EOSINOPHILS % (AUTO) 5.2 % (1.0-6.0); HEMATOCRIT 28.1 % (41-53); HEMOGLOBIN 9.9 g/dL (13.5-17.5); LYMPHOCYTES # (AUTO) 2.3 K/uL (1.0-4.8); LYMPHOCYTES % (AUTO) 28.5 % (22.0-44.0); MEAN CORPUSCULAR HEMOGLOBIN 34.5 pg (26.0-34.0); MEAN CORPUSCULAR HGB CONC 35.3 G/dL (31.0-37.0); MEAN CORPUSCULAR VOLUME 98 fL (80-100); MONOCYTES # (AUTO) 0.9 K/uL (0.1-1.0); MONOCYTES % (AUTO) 11.1 % (2.0-9.0); NEUTROPHILS # (AUTO) 4.3 K/uL (1.8-7.7); NEUTROPHILS % (AUTO) 54.4 % (40.0-70.0); PLATELET COUNT (AUTO) 175 K/uL (150-450); RED BLOOD CELL COUNT(AUTO) 2.88 MIL/uL (4.50-5.90); RED CELL DISTRIBUTION WIDTH 21.1 % (11.5-14.5)
[2017-08-16 07:16] LABS: ALANINE AMINOTRANSFERASE 287 U/L (12-78); ALBUMIN 3.2 g/dL (3.4-5.0); ALKALINE PHOSPHATASE 105 U/L (46-116); ANION GAP 7 mmol/L (8-16); ASPARTATE AMINOTRANSFERASE 193 U/L (15-37); BILIRUBIN,TOTAL 0.3 mg/dL (0.1-1.0); CALCIUM, TOTAL 8.4 mg/dL (8.8-10.5); CARBON DIOXIDE 30 mmol/L (22-29); CHLORIDE 105 mmol/L (98-107); CREATININE 1.02 mg/dL (0.60-1.30); GLOMERULAR FILTR. RATE CALC > 60 mL/min (>60); GLUCOSE,RANDOM 83 mg/dL (70-110); LACTATE DEHYDROGENASE 197 U/L (85-227); SODIUM SERUM 142 mmol/L (136-145); TOTAL PROTEIN, SERUM 6.7 g/dL (6.4-8.2); UREA NITROGEN, BLOOD 23 mg/dL (7-18)
[2017-08-16 07:29] VITALS: BP 107/68
[2017-08-16] MEDS: DOCUSATE SODIUM 100 MG CAPSULE PO SCH (09:00)
[2017-08-16] MEDS: PANTOPRAZOLE SODIUM 40 MG DR TABLET PO SCH (09:06)
[2017-08-16] MEDS: VITAMIN B COMP/VIT C/FOLIC ACID CAPSULE PO SCH (09:06)
[2017-08-16] MEDS: MAGNESIUM CHLORIDE 64 MG ER TABLET PO SCH (09:06)
[2017-08-16] MEDS: RIFAXIMIN 550 MG TABLET PO SCH (09:06)
[2017-08-16] MEDS: CALCIUM CARBONATE 500 MG CHEWABLE TABLET CHEW SCH ×2 (09:06→16:01)
[2017-08-16 10:59] VITALS: BP 108/59
[2017-08-16] MEDS ORDERED: CALCIUM GLUCONATE 3,000 MG in SODIUM CHLORIDE 0.9% 250 ML IV ONE (11:45)
[2017-08-16] MEDS ORDERED: SODIUM CHLORIDE 0.9% 2,000 ML IV ONE (11:58)
[2017-08-16 12:35] VITALS: BP 104/63
== END 2017-08-16 17:05 | disposition home or self-care (01) | DRG 720 ==
LOC: EMS 03:43 → 5N 10:16 → ICU 07-20 13:40 → 5S 07-26 17:05
PROVIDERS: ADMIT Internal Medicine; ATTEND Internal Medicine
PROC: 5A1D70Z Performance of Urinary Filtration, Intermittent, Less than 6 Hours Per Day (ICD-10-PCS; 2017-07-20)
PROC: 5A1D70Z Performance of Urinary Filtration, Intermittent, Less than 6 Hours Per Day (ICD-10-PCS; 2017-07-21)
PROC: 5A1D70Z Performance of Urinary Filtration, Intermittent, Less than 6 Hours Per Day (ICD-10-PCS; 2017-07-22)
PROC: 30233N1 Transfusion of Nonautologous Red Blood Cells into Peripheral Vein, Percutaneous Approach (ICD-10-PCS; principal; 2017-07-23)
PROC: 5A1D70Z Performance of Urinary Filtration, Intermittent, Less than 6 Hours Per Day (ICD-10-PCS; 2017-07-23)
PROC: 5A1D70Z Performance of Urinary Filtration, Intermittent, Less than 6 Hours Per Day (ICD-10-PCS; 2017-07-24)
PROC: 05HM33Z Insertion of Infusion Device into Right Internal Jugular Vein, Percutaneous Approach (ICD-10-PCS; 2017-07-24)
PROC: B543ZZA Ultrasonography of Right Jugular Veins, Guidance (ICD-10-PCS; 2017-07-24)
PROC: 5A1D70Z Performance of Urinary Filtration, Intermittent, Less than 6 Hours Per Day (ICD-10-PCS; 2017-07-25)
PROC: 5A1D70Z Performance of Urinary Filtration, Intermittent, Less than 6 Hours Per Day (ICD-10-PCS; 2017-07-26)
PROC: 30233L1 Transfusion of Nonautologous Fresh Plasma into Peripheral Vein, Percutaneous Approach (ICD-10-PCS; 2017-08-02)
PROC: 30233K1 Transfusion of Nonautologous Frozen Plasma into Peripheral Vein, Percutaneous Approach (ICD-10-PCS; 2017-08-02)
PROC: 0JH63XZ Insertion of Tunneled Vascular Access Device into Chest Subcutaneous Tissue and Fascia, Percutaneous Approach (ICD-10-PCS; 2017-08-05)
PROC: 02HV33Z Insertion of Infusion Device into Superior Vena Cava, Percutaneous Approach (ICD-10-PCS; 2017-08-05)
PROC: B5181ZA Fluoroscopy of Superior Vena Cava using Low Osmolar Contrast, Guidance (ICD-10-PCS; 2017-08-05)
PROC: B548ZZA Ultrasonography of Superior Vena Cava, Guidance (ICD-10-PCS; 2017-08-05)
PROC: 30233R1 Transfusion of Nonautologous Platelets into Peripheral Vein, Percutaneous Approach (ICD-10-PCS; 2017-08-06)
DX: A41.9 Sepsis, unspecified organism (principal); K72.00 Acute and subacute hepatic failure without coma; D65 Disseminated intravascular coagulation [defibrination syndrome]; N17.0 Acute kidney failure with tubular necrosis; G92 Toxic encephalopathy; D50.9 Iron deficiency anemia, unspecified; F15.10 Other stimulant abuse, uncomplicated; E88.09 Other disorders of plasma-protein metabolism, not elsewhere classified; E87.5 Hyperkalemia; E80.6 Other disorders of bilirubin metabolism; R80.9 Proteinuria, unspecified; K72.90 Hepatic failure, unspecified without coma; R65.20 Severe sepsis without septic shock; R56.9 Unspecified convulsions; E87.0 Hyperosmolality and hypernatremia; F10.10 Alcohol abuse, uncomplicated; D61.818 Other pancytopenia; N39.0 Urinary tract infection, site not specified; B19.20 Unspecified viral hepatitis C without hepatic coma; E87.6 Hypokalemia; F12.10 Cannabis abuse, uncomplicated; F17.210 Nicotine dependence, cigarettes, uncomplicated; Z59.0 Homelessness; Z80.9 Family history of malignant neoplasm, unspecified; Z88.0 Allergy status to penicillin; Z83.3 Family history of diabetes mellitus; Z84.1 Family history of disorders of kidney and ureter; Z84.89 Family history of other specified conditions
CPT/HCPCS: 36245; 36514; 36556; 36561; 70450; 70551; 71046; 72148; 74176; 76000; 76700; 76937; 80074; 82248; 82271; 82570; 82595; 82607; 82728; 82746; 82805; 83010; 83516; 83540; 83550; 83615; 83735; 84100; 84145; 84156; 84300; 85007; 85362; 85384; 85397; 86000; 86038; 86160; 86162; 86308; 86403; 86611; 86618; 86622; 86631; 86632; 86658; 86663; 86665; 86720; 86747; 86804; 86850; 86880; 86900; 86901; 86920; 86927; 87040; 87045; 87081; 87086; 87207; 87324; 87389; 87427; 87449; 87798; 90935; 92507; 92526; 92610; 93005; 95816; 96361; 96365; 96375; 97110; 97116; 97162; 97167; 97530; 97535; 99285; 99406; C9113; J0610; J0712; J0744; J1200; J1644; J1956; J2060; J2250; J2270; J2310; J2405; J2930; J3010; J3370; J3475; J3480; J3490; J7030; J7040; J7050; J7060; P9016; P9017; P9035; P9046

== ENCOUNTER 2017-09-04 08:28 | Emergency (ER) | payer OTHER ==
[~2017-09-04] VITALS: Ht 175.3 cm; Wt 69.1 kg
[2017-09-04] MEDS ORDERED: IBUPROFEN 600 MG TABLET PO ONE (10:45)
[2017-09-04] MEDS ORDERED: DiphenhydrAMINE HCL 25 MG CAPSULE PO ONE (10:45)
[2017-09-04] MEDS ORDERED: PredniSONE 20 MG TABLET PO ONE (10:45)
[2017-09-04 12:25] VITALS: BP 110/60
== END 2017-09-04 12:26 | disposition home or self-care (01) ==
LOC: EMS 08:30
DX: T63.441A Toxic effect of venom of bees, accidental (unintentional), initial encounter (principal); R22.0 Localized swelling, mass and lump, head; F17.210 Nicotine dependence, cigarettes, uncomplicated; Z88.0 Allergy status to penicillin; Y92.89 Other specified places as the place of occurrence of the external cause
CPT/HCPCS: 99284; 99406; J7512

== ENCOUNTER 2017-09-16 16:39 | Emergency (ER) | payer OTHER ==
[~2017-09-16] VITALS: Ht 175.3 cm; Wt 70.0 kg
[2017-09-16 16:49] VITALS: BP 135/87
== END 2017-09-16 17:40 | disposition left against medical advice (07) ==
LOC: EMS 16:40
DX: Z48.00 Encounter for change or removal of nonsurgical wound dressing (principal); F17.210 Nicotine dependence, cigarettes, uncomplicated; Z53.21 Procedure and treatment not carried out due to patient leaving prior to being seen by health care provider

== ENCOUNTER 2017-09-23 11:36 | Emergency (ER) | payer OTHER ==
[~2017-09-23] VITALS: Ht 175.3 cm; Wt 63.6 kg
[2017-09-23] MEDS ORDERED: LIDOCAINE HCL/PF 1% 30 ML VIAL ONE (13:02)
[2017-09-23] MEDS ORDERED: HEPARIN SODIUM 1000 UNITS/NS 500 ML ONE (13:02)
[2017-09-23 15:12] VITALS: BP 111/70
== END 2017-09-23 15:12 | disposition home or self-care (01) ==
LOC: EMS 11:37
DX: T85.848A Pain due to other internal prosthetic devices, implants and grafts, initial encounter (principal); F17.210 Nicotine dependence, cigarettes, uncomplicated; Z45.2 Encounter for adjustment and management of vascular access device; Z88.0 Allergy status to penicillin
CPT/HCPCS: 36590; 99283; J1644; J3490

== ENCOUNTER 2018-01-25 17:41 | Emergency (ER) | payer MEDICAID ==
[~2018-01-25] VITALS: Ht 175.3 cm; Wt 72.7 kg
[~2018-01-25 17:41] MED LIST: FERR-89 PO; OLAN10TA6 PO
[2018-01-25 17:42] VITALS: BP 122/84
== END 2018-01-25 19:44 | disposition left against medical advice (07) ==
LOC: EMS 17:42
DX: M79.10 Myalgia, unspecified site (principal); Z53.21 Procedure and treatment not carried out due to patient leaving prior to being seen by health care provider

== ENCOUNTER 2018-04-18 17:14 | Emergency (ER) | payer MEDICAID, OTHER ==
[~2018-04-18] VITALS: Ht 175.3 cm; Wt 68.2 kg
[2018-04-18 17:54] LABS: ANION GAP 10 mmol/L (8-16); BASOPHILS % (AUTO) 0.5 % (0.0-2.0); CALCIUM, TOTAL 8.9 mg/dL (8.8-10.5); CARBON DIOXIDE 27 mmol/L (22-29); CHLORIDE 105 mmol/L (98-107); CREATININE 0.81 mg/dL (0.60-1.30); GLOMERULAR FILTR. RATE CALC > 60 mL/min (>60); GLUCOSE,RANDOM 78 mg/dL (70-110); HEMATOCRIT 39.8 % (41-53); HEMOGLOBIN 13.9 g/dL (13.5-17.5); LYMPHOCYTES # (AUTO) 2.5 K/uL (1.0-4.8); LYMPHOCYTES % (AUTO) 29.8 % (22.0-44.0); MEAN CORPUSCULAR HEMOGLOBIN 34.4 pg (26.0-34.0); MEAN CORPUSCULAR HGB CONC 35.1 G/dL (31.0-37.0); MEAN CORPUSCULAR VOLUME 98 fL (80-100); MONOCYTES # (AUTO) 0.8 K/uL (0.1-1.0); NEUTROPHILS # (AUTO) 4.7 K/uL (1.8-7.7); NEUTROPHILS % (AUTO) 56.7 % (40.0-70.0); PLATELET COUNT (AUTO) 218 K/uL (150-450); POTASSIUM 3.4 mmol/L (3.5-5.1); RED BLOOD CELL COUNT(AUTO) 4.05 MIL/uL (4.50-5.90); RED CELL DISTRIBUTION WIDTH 13.3 % (11.5-14.5); SODIUM SERUM 142 mmol/L (136-145); UREA NITROGEN, BLOOD 14 mg/dL (7-18)
[2018-04-18 18:00] LABS: ALANINE AMINOTRANSFERASE 246 U/L (12-78); ALBUMIN 3.5 g/dL (3.4-5.0); ALKALINE PHOSPHATASE 73 U/L (46-116); ASPARTATE AMINOTRANSFERASE 178 U/L (15-37); BILIRUBIN,TOTAL 0.8 mg/dL (0.1-1.0); TOTAL PROTEIN, SERUM 7.4 g/dL (6.4-8.2)
[2018-04-18 20:13] LABS: AMPHET/METH SCREEN,URINE POSITIVE (NEGATIVE); BARBITURATE SCREEN, URINE NEGATIVE (NEGATIVE); BENZODIAZEPINES SCREEN,URINE NEGATIVE (NEGATIVE); CANNABINOID SCREEN,URINE POSITIVE (NEGATIVE); COCAINE SCREEN,URINE NEGATIVE (NEGATIVE); METHADONE SCREEN, URINE NEGATIVE (NEGATIVE); OPIATE SCREEN,URINE NEGATIVE (NEGATIVE)
[2018-04-18 20:14] LABS: PHENCYCLIDINE SCREEN,URINE NEGATIVE (NEGATIVE)
[2018-04-18 22:33] VITALS: BP 116/71
== END 2018-04-18 23:36 | disposition home or self-care (01) ==
LOC: EMS 17:15
DX: S73.192A Other sprain of left hip, initial encounter (principal); F15.10 Other stimulant abuse, uncomplicated; R74.0 Nonspecific elevation of levels of transaminase and lactic acid dehydrogenase [LDH]; F17.210 Nicotine dependence, cigarettes, uncomplicated; Z88.0 Allergy status to penicillin; V18.4XXA Pedal cycle driver injured in noncollision transport accident in traffic accident, initial encounter; Y93.89 Activity, other specified; Y92.89 Other specified places as the place of occurrence of the external cause; Y99.8 Other external cause status
CPT/HCPCS: 36415; 80053; 80307; 85025; 99283; G0480

== ENCOUNTER 2018-11-27 17:52 | Emergency (ER) | payer OTHER ==
[~2018-11-27] VITALS: Ht 167.6 cm; Wt 72.3 kg
[2018-11-27 18:03] VITALS: BP 132/75
== END 2018-11-27 18:42 | disposition left against medical advice (07) ==
LOC: EMS 17:54
DX: Z53.21 Procedure and treatment not carried out due to patient leaving prior to being seen by health care provider (principal)

== ENCOUNTER 2023-08-10 22:35 | Emergency (ER) | payer OTHER ==
[~2023-08-10] VITALS: Ht 172.7 cm; Wt 77.3 kg
[~2023-08-10 22:35] MED LIST changes: -FERR-89 PO; +FERR325T27 PO; +OLAN10TA26 PO; -OLAN10TA6 PO
[2023-08-10 22:55] VITALS: BP 125/75; PULSE 95; RESP 16; TEMP 98
== END 2023-08-11 00:47 | disposition left against medical advice (07) ==
LOC: EMS 22:55
DX: M54.6 Pain in thoracic spine (principal); Z53.21 Procedure and treatment not carried out due to patient leaving prior to being seen by health care provider

== ENCOUNTER 2023-09-13 13:59 | Emergency (ER) | payer OTHER ==
[~2023-09-13] VITALS: Ht 170.2 cm; Wt 70.5 kg
[2023-09-13 14:04] VITALS: BP 118/79; PULSE 87; RESP 18; TEMP 98.5
== END 2023-09-13 17:16 | disposition home or self-care (01) ==
LOC: EMS 14:10
DX: M54.50 Low back pain, unspecified (principal); R07.81 Pleurodynia; F17.210 Nicotine dependence, cigarettes, uncomplicated; Z88.0 Allergy status to penicillin
CPT/HCPCS: 71046; 72100; 99284